=== PATIENT | female | born 1980 | race Caucasian/White ===

== ENCOUNTER → 2017-03-02 | Outpatient (CLI) | payer BC ==
[~2017-03-02] MED LIST: AGM875T PO; CEPH500C PO; NIFE20CA PO; PREN1TAB49
== END ==
LOC: LAB 19:12
PROVIDERS: ATTEND Nurse Practitioner Family
DX: N39.0 Urinary tract infection, site not specified (principal)
CPT/HCPCS: 87088

== ENCOUNTER 2022-08-01 00:11 | Inpatient (IN) | payer BC ==
[~2022-08-01] VITALS: Ht 162.6 cm; Wt 101.8 kg
[2022-08-01] MEDS ORDERED: DEXTROSE 50% 50 ML (IMS) SYR IV PRN (01:15)
[2022-08-01] MEDS ORDERED: NS IV 500 ML 500 ML IV PRN (01:45)
[2022-08-01] MEDS: D5 NS 1000 ML IV SOLUTION 1,000 ML IV SCH ×4 (02:06→23:04)
--- NOTE | 2022-08-01 02:32 | Tele-ICU Progress Note ---
Subjective Date Seen by a Provider: Aug 01, 2022 Time Seen by a Provider: 02:32 Subjective/Events-last exam (Tele-ICU Physician , consultation) Available chart/ vitals / labs / Images reviewed H&P is from ER notes Patient's information available about PMH, allergy reviewed in EMR. ROS as per chart and RN report Video assessment done using teleICU camera, rest of exam as per RN Discussed with RN. She is a 41-year-old female with past medical history of fall hypertension for which she takes hydrochlorothiazide and a moderate obesity with a previous history of cholecystectomy presents to [facility] emergency room with a complaint of diffuse abdominal pain going on for about 24 hours prior to this admission. She had a mild nausea at that time. No history of hematemesis or melena. In the emergency room she is evaluated with various blood test including CBC CMP and lipid profile which showed elevated lipase, markedly elevated cholesterol and triglycerides. A CT of the abdomen and pelvis done which the revealed pancreatitis changes. Subsequently she is transferred to this facility. I made a video visit and discussed with the patient. She is already given at that time Dilaudid and she is feeling somewhat better from a pain point of view but she has a nausea. Otherwise no acute distress at this time. I have discussed with the ER physician Christian Carrillo at the time of transfer of this patient. She is started on IV insulin drip to reduce her lipid burden. but her glucose is normal. Review of Systems General: Other (mild distress. otherwise stable.) ros per rn Sepsis Event Evaluation Height, Weight, BMI Height: '" Weight: lbs. oz. kg; 33.87 BMI Method:Stated Exam Exam Patient acknowledged, consented, and participated in this virtual visit which was conducted using real time audio/video Vital Signs Date Time Temp Pulse Resp B/P (MAP) Pulse Ox O2 Delivery O2 Flow Rate FiO2 08/01/22 01:15 97 18 147/91 (109) 93 Room Air 08/01/22 01:10 95 Room Air 08/01/22 01:01 36.2 114 24 173/102 (125) 93 Room Air 08/01/22 01:01 114 Height & Weight Height: '" Weight: lbs. oz. 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 Acute pancreatitis secondary to severe hypertriglyceridemia. 2. Dehydration with metabolic acidosis 3. History of hypertension. Recommendations 1. Agree with IV insulin drip and hydration with D5 half-normal saline. 2. Monitor electrolytes, triglycerides and anion gap closely. 3. DVT prophylaxis with Lovenox 4. GI prophylaxis with IV Protonix 5. Keep her n.p.o. for now. 6. Suggest surgical consultation. 7. CHECK HbA1c Critical Care: Critically Ill Patient Time spent with patient (mins): 20 SIMIN MEDRANO MD Aug 01, 2022 02:32
[2022-08-01] MEDS: HYDROmorphone 2 MG/ML VIAL (DILAUDID) IV PRN ×4 (02:48→20:08)
[2022-08-01] MEDS: ONDANSETRON 4 MG/2 ML (SDV) Z0FRAN IVP PRN ×2 (03:12→08:33)
[2022-08-01 05:25] LABS: BASOPHILS % (AUTO) 0 % (0-10); EOSINOPHILS % (AUTO) 0 % (0-10); HEMATOCRIT 38 % (35-52); HEMOGLOBIN 13.1 g/dL (11.5-16.0); LYMPHOCYTES % (AUTO) 8 % (12-44); MEAN CORPUSCULAR HEMOGLOBIN 33 pg (25-34); MEAN CORPUSCULAR HGB CONC 35 g/dL (32-36); MEAN CORPUSCULAR VOLUME 95 fL (80-99); MEAN PLATELET VOLUME 11.5 fL (9.0-12.2); MONOCYTES # (AUTO) 0.8 10^3/uL (0.0-1.0); MONOCYTES % (AUTO) 6 % (0-12); NEUTROPHILS # (AUTO) 11.2 10^3/uL (1.8-7.8); NEUTROPHILS % (AUTO) 85 % (42-75); PLATELET COUNT 191 10^3/uL (130-400); WHITE BLOOD COUNT 13.1 10^3/uL (4.3-11.0)
[2022-08-01 05:42] LABS: MAGNESIUM 1.6 MG/DL (1.6-2.4); PHOSPHORUS 1.3 MG/DL (2.3-4.7)
[2022-08-01 05:58] LABS: BAND NEUTROPHILS 4 %; LYMPHOCYTES % (MANUAL) 4 %; MONOCYTES % (MANUAL) 2 %; NEUTROPHILS % (MANUAL) 90 %
[2022-08-01 05:59] LABS: RBC MORPH NORMAL; TOXIC GRANULATION/VACUOLAZATIO 1+
[2022-08-01] MEDS: MAGNESIUM 1 GM/100 ML IVPB 100 ML IV SCH ×4 (06:00→10:32)
[2022-08-01] MEDS: KCL 20 MEQ TAB (K-DUR) PO SCH (06:00)
[2022-08-01] MEDS: POTASSIUM CL 10MEQ/50ML IVPB 50 ML IV SCH ×5 (06:00→09:13)
[2022-08-01] MEDS: GEMFIBROZIL 600 MG (LOPID) TAB PO SCH ×2 (06:06→15:38)
[2022-08-01 06:17] LABS: POTASSIUM 3.3 MMOL/L (3.6-5.0)
[2022-08-01 06:18] LABS: CALCIUM 7.8 MG/DL (8.5-10.1)
[2022-08-01 06:23] LABS: CREATININE SERUM 0.69 MG/DL (0.60-1.30)
[2022-08-01] MEDS: PANTOPRAZOLE 40 MG (PROTONIX) VIAL IV SCH (08:01)
[2022-08-01] MEDS: ENOXAPARIN 40 MG/0.4 ML (LOVENOX) SYR SC SCH (08:01)
[2022-08-01] MEDS: meTOproloL SUCCINATE 50 MG (TOPROL XL) TAB PO SCH (08:02)
[2022-08-01] MEDS: morphine INJ 4 MG/ML 1 ML (VIAL/SYRINGE) IVP PRN ×2 (08:03→14:44)
[2022-08-01] MEDS ORDERED: POTASSIUM PHOSPHATE INJ 30 MM in NS (IVPB) 250 ML IV NR (08:30)
--- NOTE | 2022-08-01 08:44 | History & Physical-Hospitalist ---
History of Present Illness HPI/Chief Complaint Patient is a 41-year-old female with a past medical history of hypertension who presented to the emergency department at [facility] due to abdominal pain. She states it started yesterday and woke her from her sleep. It continued throughout the day and she decided to seek evaluation in the ER last night. She was found to have an elevated lipase and her blood was very lipemic upon lab draw and so triglyceride was checked. Her triglyceride level was found to be 4500. CT of her abdomen confirmed pancreatitis. She was transferred here for further management. She is currently on an insulin drip and reports severe persistent pain. She had had Dilaudid earlier in the day but it had made her sick to her stomach. She denies any history of pancreatitis and reports when her triglycerides were checked in the past they wereon the high end of normal. Source: patient Exam Limitations: no limitations Date Seen 08/01/22 Time Seen by a Provider: 07:50 Attending Physician Destiny Jalloh DO PCP Admitting Physician: Dell Mendez MD Attending Physician: Dell Mendez MD Referring Physician Date of Admission Aug 01, 2022 at 00:52 Home Medications & Allergies Home Medications Reviewed patient Home Medication Reconciliation performed by pharmacy medication reconciliations electronics engineering technician and/or nursing. Patients Allergies have been reviewed. Allergies Allergies Coded Allergies No Known Drug Allergies (Unverified03/12/10) Past Oqtuoku-Kjdayt-Ykumlk Hx Patient Social History Tobacco Use?: No Smoking Status: Never a Smoker Smokeless Tobacco Frequency: Never a User Use of E-Cig and/or Vaping dev: No Substance use?: No Alcohol Use?: Yes Alcohol type: Beer Alcohol Frequency: Once in a while Pt feels they are or have been: No Immunizations Up To Date Tetanus Booster (TDap): More Than 5 Years Hepatitis A: No Hepatitis B: No Current Status status: No status: No Advance Directives: No Communicates: Verbally Primary Language: Dutch Preferred Spoken Language: Dutch Is interpretation needed?: No Review of Systems Constitutional: No chills, No fever EENTM: no symptoms reported Respiratory: no symptoms reported Cardiovascular: no symptoms reported Gastrointestinal: see HPI Genitourinary: no symptoms reported Musculoskeletal: no symptoms reported Skin: no symptoms reported Psychiatric/Neurological: No Symptoms Reported Physical Exam Physical Exam Vital Signs Vital Signs - First Documented 08/01/22 08/01/22 01:01 15:00 Temp 36.2 Pulse 114 Resp 24 B/P (MAP) 173/102 (125) Pulse Ox 93 O2 Delivery Room Air O2 Flow Rate 2.00 Capillary Refill : Height, Weight, BMI Height: '" Weight: lbs. oz. kg; 36.65 BMI Method:Stated General Appearance: No Apparent Distress, WD/WN HEENT: PERRL/EOMI, Moist Mucous Membranes Respiratory: Lungs Clear, No Accessory Muscle Use, No Respiratory Distress Cardiovascular: Regular Rate, Rhythm, No Murmur Gastrointestinal: Normal Bowel Sounds, Soft Extremity: Normal Capillary Refill, No Calf Tenderness, No Pedal Edema Neurologic/Psychiatric: Alert, Oriented x3, Normal Mood/Affect Skin: Normal Color, Warm/Dry Results Results/Procedures Labs Laboratory Tests 08/01/22 05:00 08/01/22 18:30 08/02/22 04:50 Patient resulted labs reviewed. Imaging: Reviewed Imaging Report (from [facility]) Assessment/Plan Admission Diagnosis Hypertriglyceridemia induced pancreatitis Admission Status: Inpatient Order (span 2 midnights) Reason for Inpatient Admission: see below Assessment and Plan Hypertriglyceridemia induced pancreatitis Trig 4500 at outside facility Insulin gtt NPO Pain regimen IVF Discussed with Dr Livingston who will see in consultation HTN BP well controlled, trend DVT ppx: Lovenox Diagnosis/Problems Diagnosis/Problems (1) Hypertension (2) Hypertriglyceridemia (3) Pancreatitis Qualifiers: Chronicity: acute Pancreatitis type: other Acute pancreatitis complication: no infection or necrosis Qualified Codes: K85.80 - Other acute pancreatitis without necrosis or infection NESHA COLORADO MD Aug 01, 2022 08:44
[2022-08-01] MEDS ORDERED: cefTRIAXone 1 GM PRE-MIX 50 ML IV SCH (10:30)
[2022-08-01] MEDS: PROMETHAZINE INJ 25 MG/ML (PHENERGAN) AMP IVP PRN ×3 (11:12→19:56)
[2022-08-01] MEDS: fentaNYL INJ 100 MCG/2 ML AMP IVP PRN (13:59)
[2022-08-01] MEDS ORDERED: CHOL200074 PO (14:47)
[2022-08-01] MEDS ORDERED: SULF-221 PO (14:47)
[2022-08-01] MEDS ORDERED: METO50TA15 PO (14:47)
[2022-08-01] MEDS ORDERED: MULT-1136 PO (14:47)
[2022-08-01] MEDS ORDERED: LORA10TA7 PO (14:47)
[2022-08-01] MEDS ORDERED: HYDR25TA4 PO (14:47)
[2022-08-01] MEDS ORDERED: ASCO-262 PO (14:47)
[2022-08-01] MEDS ORDERED: NORG1TAB15 PO (14:47)
[2022-08-01] MEDS ORDERED: ADAL40PE5 IJ (14:47)
--- NOTE | 2022-08-01 15:10 | Consultation - Surgery ---
[facility] 08/01/22 1510: History of Present Illness History of Present Illness Patient Consulted On(thong/time) 08/01/22 15:05 Date Seen by Provider: Aug 01, 2022 Time Seen by Provider: 15:05 History of Present Illness Consult requested by Dr. Leigh for pancreatitis. This is a 41 y F with PMH of HTN, elevated triglycerides and is s/p cholecystectomy. Pt reports lower abdominal and flank pain starting 07/30/22. She presented to [facility] ED night of 07/31/22 after she began vomiting, experiencing SOB and tachycardia. At [facility], CT revealed pancreatitis and she was transferred here by ambulance. Today she reports she has never had this pain before and describes it as going from abdomen through to her back. Reports only occasional alcohol use, denies smoking or recreational drug use. Allergies and Home Medications Allergies Coded Allergies: No Known Drug Allergies (Unverified , 03/12/10) Patient Home Medication List Home Medication List Reviewed: Yes Adalimumab (Humira Pen) 40 Mg/0.4 Ml Pen.ij.kit, 40 MG IJ MONTHLY, (Reported) Entered as Reported by: TEENA EARLY on 08/01/221446 Last Action: Reviewed Ascorbate Calcium (Vitamin C) 500 Mg Tablet, 500 MG PO DAILY, (Reported) Entered as Reported by: TEENA EARLY on 08/01/221446 Last Action: Reviewed Cholecalciferol (Vitamin D3) (Vitamin D3) 50 Mcg (2000 Unit) Capsule, 50 MCG PO DAILY, (Reported) Entered as Reported by: TEENA EARLY on 08/01/221446 Last Action: Reviewed Hydrochlorothiazide (Hydrochlorothiazide) 25 Mg Tablet, 25 MG PO DAILY, (Reported) Entered as Reported by: TEENA EARLY on 08/01/221446 Last Action: Reviewed Loratadine (Loratadine) 10 Mg Tablet, 10 MG PO DAILY, (Reported) Entered as Reported by: TEENA EARLY on 08/01/221446 Last Action: Reviewed Metoprolol Tartrate (Metoprolol Tartrate) 50 Mg Tablet, 50 MG PO BID, (Reported) Entered as Reported by: TEENA EARLY on 08/01/221446 Last Action: Reviewed Multivitamin (Multivitamin) 1 Each Tablet, 1 EACH PO DAILY, (Reported) Entered as Reported by: TEENA EARLY on 08/01/221446 Last Action: Reviewed Norgestimate-Ethinyl Estradiol (Tri-Sprintec Tablet) [id number] 28 Tablet, 1 EA PO HS, (Reported) Entered as Reported by: TEENA EARLY on 08/01/221446 Last Action: Reviewed Sulfamethoxazole/Trimethoprim (Bactrim Ds Tablet) 800 Mg-160 Mg Tablet, 1 EA PO BID, (Reported) Entered as Reported by: TEENA EARLY on 08/01/221446 Last Action: Reviewed Discontinued Medications Cephalexin Monohydrate (Cephalexin) 500 Mg Capsule, 1 EACH PO QID, (Reported) Discontinued Reason: No Longer Taking Entered as Reported by: MARIUSZ VARGAS on 07/04/10828 Last Action: Discontinued Nifedipine (Procardia) 20 Mg Capsule, 20 MG PO BID, (Reported) Discontinued Reason: No Longer Taking Entered as Reported by: MARIUSZ VARGAS on 07/04/10828 Last Action: Discontinued Vit27&Calcium/Iron/Fa ( Rx Tablet) 1 Each Tablet, 1 daily, (Reported) Discontinued Reason: No Longer Taking Entered as Reported by: YA VARGAS on 03/12/102126 Last Action: Discontinued Past Swndsfb-Ocfjnf-Deuoqp Hx Patient Social History Smoking Status: Never a Smoker Alcohol Use?: Yes Have you traveled recently?: No Surgeries Surgeries: Gallbladder Reproductive System Hx Reproductive Disorders: No Review of Systems-General Constitutional: No chills, No diaphoresis EENTM: No blurred vision, No double vision Respiratory: No cough, No dyspnea on exertion Cardiovascular: No chest pain, No palpitations Gastrointestinal: abdominal pain, nausea, vomiting Genitourinary: No decreased output, No discharge Musculoskeletal: No gout, No joint pain Skin: No change in color, No change in hair/nails Psychiatric/Neurological: Denies Anxiety, Denies Depressed, Denies Emotional Problems All Other Systems Reviewed Negative Unless Noted: Yes (Negative excepted noted.) Physical Exam-General Problems Physical Exam Vital Signs Vital Signs - First Documented 08/01/22 01:01 Temp 36.2 Pulse 114 Resp 24 B/P (MAP) 173/102 (125) Pulse Ox 93 O2 Delivery Room Air Capillary Refill : General Appearance: WD/WN, no apparent distress HEENT: PERRL/EOMI, normal ENT inspection Neck: non-tender, supple Respiratory: chest non-tender, no respiratory distress, no accessory muscle use Cardiovascular: no JVD, tachycardia Gastrointestinal: soft, tenderness (epigastric area) Rectal: deferred Back: normal inspection, CVA tenderness (R) (slight tenderness bilateral) Extremities: normal range of motion, non-tender Neurologic/Psychiatric: alert, normal mood/affect, oriented x 3 Skin: normal color, warm/dry Lymphatic: no adenopathy Data Review Labs Laboratory Tests 08/01/22 02:06: Glucometer 153H 08/01/22 03:02: Glucometer 147H 08/01/22 04:06: Glucometer 149H 08/01/22 04:58: Glucometer 130H 08/01/22 05:00: White Blood Count 13.1H, Red Blood Count 3.98, Hemoglobin 13.1, Hematocrit 38, M jesús Corpuscular Volume 95, Mean Corpuscular Hemoglobin 33, Mean Corpuscular Hemoglobin Concent 35, Red Cell Distribution Width 13.3, Platelet Count 191, Mean Platelet Volume 11.5, Immature Granulocyte % (Auto) 0, Neutrophils (%) (Auto) 85H, Lymphocytes (%) (Auto) 8L, Monocytes (%) (Auto) 6, Eosinophils (%) (Auto) 0, Basophils (%) (Auto) 0, Neutrophils # (Auto) 11.2H, Lymphocytes # (Auto) 1.0, Monocytes # (Auto) 0.8, Eosinophils # (Auto) 0.0, Basophils # (Auto) 0.0, Immature Granulocyte # (Auto) 0.1, Neutrophils % (Manual) 90, Lymphocytes % (Manual) 4, Monocytes % (Manual) 2, Band Neutrophils 4, Toxic Granulation 1+, Blood Morphology Comment NORMAL, Sodium Level 129L, Potassium Level 3.3L, Chloride Level 99, Carbon Dioxide Level 15L, Anion Gap 15H, Blood Urea Nitrogen 7, Creatinine 0.69, Estimat Glomerular Filtration Rate 112, BUN/Creatinine Ratio 10, Glucose Level 130H, Calcium Level 7.8L, Phosphorus Level 1.3L, Magnesium Level 1.6, Triglycerides Level 2330H 08/01/22 06:11: Glucometer 129H 08/01/22 07:11: Glucometer 155H 08/01/22 08:16: Glucometer 150H 08/01/22 09:07: Glucometer 102 08/01/22 10:05: Glucometer 122H 08/01/22 11:09: Glucometer 116H 08/01/22 11:50: Glucometer 94 08/01/22 13:04: Glucometer 112H 08/01/22 14:03: Glucometer 78 Assessment/Plan Assessment/Plan Assessment/Plan abdominal pain secondary to pancreatitis nausea/vomiting elevated triglycerides IV fluids, pain control zofran q4h continue to monitor TG with labs PATO PALMER DO 08/01/22 1622: History of Present Illness History of Present Illness History of Present Illness Consult requested by Dr. Leigh for pancreatitis. Patient is a 41-year-old female who states she been having abdominal pain since July 30. She states the pain continued to increase and she decided to go to the emergency department for further evaluation and [place]. She began having nausea and vomiting. She has not had anything like this before she states. Nothing seemed to make her pain better nothing was seem to make it worse that she knows of. It is continued to progress. Patient states the pain is in the epigastric area and also is also in her back. She denies any significant alcohol use. She had previous ch olecystectomy. She is found to have elevated cholesterol and triglycerides and a CT scan that was consistent with pancreatitis at the [facility]. Allergies and Home Medications Allergies Coded Allergies: No Known Drug Allergies (Unverified , 03/12/10) Patient Home Medication List Home Medication List Reviewed: Yes Adalimumab (Humira Pen) 40 Mg/0.4 Ml Pen.ij.kit, 40 MG IJ MONTHLY, (Reported) Entered as Reported by: TEENA EARLY on 08/01/221446 Last Action: Reviewed Ascorbate Calcium (Vitamin C) 500 Mg Tablet, 500 MG PO DAILY, (Reported) Entered as Reported by: TEENA EARLY on 08/01/221446 Last Action: Reviewed Cholecalciferol (Vitamin D3) (Vitamin D3) 50 Mcg (2000 Unit) Capsule, 50 MCG PO DAILY, (Reported) Entered as Reported by: TEENA EARLY on 08/01/221446 Last Action: Reviewed Hydrochlorothiazide (Hydrochlorothiazide) 25 Mg Tablet, 25 MG PO DAILY, (Reported) Entered as Reported by: TEENA EARLY on 08/01/221446 Last Action: Reviewed Loratadine (Loratadine) 10 Mg Tablet, 10 MG PO DAILY, (Reported) Entered as Reported by: TEENA EARLY on 08/01/221446 Last Action: Reviewed Metoprolol Tartrate (Metoprolol Tartrate) 50 Mg Tablet, 50 MG PO BID, (Reported) Entered as Reported by: TEENA EARLY on 08/01/221446 Last Action: Reviewed Multivitamin (Multivitamin) 1 Each Tablet, 1 EACH PO DAILY, (Reported) Entered as Reported by: TEENA EARLY on 08/01/221446 Last Action: Reviewed Norgestimate-Ethinyl Estradiol (Tri-Sprintec Tablet) 1VIPBW2 28 Tablet, 1 EA PO HS, (Reported) Entered as Reported by: TEENA EARLY on 08/01/221446 Last Action: Reviewed Sulfamethoxazole/Trimethoprim (Bactrim Ds Tablet) 800 Mg-160 Mg Tablet, 1 EA PO BID, (Reported) Entered as Reported by: TEENA EARLY on 08/01/221446 Last Action: Reviewed Discontinued Medications Cephalexin Monohydrate (Cephalexin) 500 Mg Capsule, 1 EACH PO QID, (Reported) Discontinued Reason: No Longer Taking Entered as Reported by: MARIUSZ VARGAS on 07/04/10828 Last Action: Discontinued Nifedipine (Procardia) 20 Mg Capsule, 20 MG PO BID, (Reported) Discontinued Reason: No Longer Taking Entered as Reported by: MARIUSZ VARGAS on 07/04/10828 Last Action: Discontinued Vit27&Calcium/Iron/Fa ( Rx Tablet) 1 Each Tablet, 1 daily, (Reported) Discontinued Reason: No Longer Taking Entered as Reported by: YA VARGAS on 03/12/102126 Last Action: Discontinued Past Uagiytx-Jrzact-Jinbam Hx Reviewed Nursing Assessment Reviewed/Agree w Nursing PMH: Yes Family Medical History Significant Family History: No Pertinent Family Hx Review of Systems-General Constitutional: No chills, No diaphoresis EENTM: No blurred vision, No double vision Respiratory: No cough, No dyspnea on exertion Cardiovascular: No chest pain, No palpitations Gastrointestinal: abdominal pain, nausea, vomiting Genitourinary: No decreased output, No discharge Musculoskeletal: back pain; No gout, No joint pain Skin: No change in color, No change in hair/nails Psychiatric/Neurological: Denies Anxiety, Denies Depressed, Denies Emotional Problems All Other Systems Reviewed Negative Unless Noted: Yes (Negative excepted noted.) Physical Exam-General Problems Physical Exam General Appearance: WD/WN, no apparent distress HEENT: PERRL/EOMI, normal ENT inspection Neck: non-tender, supple Respiratory: chest non-tender, no respiratory distress, no accessory muscle use Cardiovascular: no JVD, tachycardia Gastrointestinal: soft, tenderness (epigastric area) Rectal: deferred Back: normal inspection, CVA tenderness (R) (slight tenderness bilateral) Extremities: normal range of motion, non-tender Neurologic/Psychiatric: alert, normal mood/affect, oriented x 3 Skin: normal color, warm/dry Lymphatic: no adenopathy Assessment/Plan Assessment/Plan Assessment/Plan abdominal pain secondary to pancreatitis nausea/vomiting elevated triglycerides IV fluids, pain control zofran q4h NPO Do not need GB u/s already removed Supervisory-Addendum Brief Verification & Attestation Participated in pt care: history, MDM, physical Personally performed: exam, history, MDM, supervision of care Care discussed with: Medical Student Procedures: n/a Results interpretation: Verified all documentation Verification and Attestation of Medical Student E/M Service A medical student performed and documented this service in my presence. I reviewed and verified all information documented by the medical student and made modifications to such information, when appropriate. I personally performed the physical exam and medical decision making. Pato Palmer, Aug 01, 2022,16:24 ROSITA BOUDREAUX Aug 01, 2022 15:10 PATO PALMER DO Aug 01, 2022 16:22
[2022-08-01] MEDS: cefTRIAXone 1 GM PRE-MIX 50 ML IV SCH (15:33)
[2022-08-01 18:45] LABS: POTASSIUM 3.8 MMOL/L (3.6-5.0)
[2022-08-01 18:46] LABS: CALCIUM 7.4 MG/DL (8.5-10.1)
[2022-08-01 18:51] LABS: CREATININE SERUM 0.67 MG/DL (0.60-1.30)
[2022-08-01] MEDS ORDERED: DEXTROSE 10% IV SOLUTION 1,000 ML IV ONE (19:35)
[2022-08-01] MEDS: DEXTROSE 10% IV SOLUTION 1,000 ML IV SCH (19:56)
[2022-08-02] MEDS: PROMETHAZINE INJ 25 MG/ML (PHENERGAN) AMP IVP PRN ×4 (01:00→20:50)
[2022-08-02] MEDS: HYDROmorphone 2 MG/ML VIAL (DILAUDID) IV PRN ×4 (01:00→21:28)
[2022-08-02] MEDS: POTASSIUM CL 10MEQ/50ML IVPB 50 ML IV SCH (04:50)
[2022-08-02] MEDS: D5 NS 1000 ML IV SOLUTION 1,000 ML IV SCH ×3 (04:50→20:30)
[2022-08-02] MEDS: MAGNESIUM 1 GM/100 ML IVPB 100 ML IV SCH (04:50)
[2022-08-02] MEDS: KCL 20 MEQ TAB (K-DUR) PO SCH (04:50)
[2022-08-02 05:16] LABS: BASOPHILS # (AUTO) 0.1 10^3/uL (0.0-0.1); BASOPHILS % (AUTO) 0 % (0-10); EOSINOPHILS % (AUTO) 0 % (0-10); HEMATOCRIT 38 % (35-52); HEMOGLOBIN 12.1 g/dL (11.5-16.0); LYMPHOCYTES # (AUTO) 1.4 10^3/uL (1.0-4.0); LYMPHOCYTES % (AUTO) 8 % (12-44); MEAN CORPUSCULAR HEMOGLOBIN 32 pg (25-34); MEAN CORPUSCULAR HGB CONC 32 g/dL (32-36); MEAN CORPUSCULAR VOLUME 98 fL (80-99); MEAN PLATELET VOLUME 11.5 fL (9.0-12.2); MONOCYTES % (AUTO) 6 % (0-12); NEUTROPHILS # (AUTO) 13.7 10^3/uL (1.8-7.8); NEUTROPHILS % (AUTO) 84 % (42-75); PLATELET COUNT 186 10^3/uL (130-400); WHITE BLOOD COUNT 16.3 10^3/uL (4.3-11.0)
[2022-08-02 05:39] LABS: CALCIUM 7.6 MG/DL (8.5-10.1); CREATININE SERUM 0.68 MG/DL (0.60-1.30); MAGNESIUM 2.4 MG/DL (1.6-2.4); PHOSPHORUS 2.1 MG/DL (2.3-4.7)
--- NOTE | 2022-08-02 06:40 | Progress Note - Surgery ---
[facility] 08[facility]02/22 0640: Subjective Date Seen by a Provider: Aug 02, 2022 Time Seen by a Provider: 06:34 Subjective/Events-last exam Last night patient glucose was down to 57. Insulin drip was put on standby, 1/2 AMP of D50 was given and new orders changed fluid from D5 NS at 150mL/hr to D10 at 50 mL/hr and restart insulin drip at glucose over 120. Since, glucose has remained above 100. Insulin drip now stopped. Today she reports less pain though she woke up with STEVENS and sore throat. Her pain is at a 6/10 constantly localized in the epigastrium and is made worse by taking deep breaths. Her n/v improves with Phenergan and pain improves with Dilaudid. She reports she took her control pill last night and did not have any issues. Pt also reports her PCP told her to start taking Fish oil after a TG level in the 300s about 1 year ago, she only took this intermittently for a short time and is not currently taking it. Objective Exam Vital Signs Date Time Temp Pulse Resp B/P (MAP) Pulse Ox O2 Delivery O2 Flow Rate FiO2 08/02/22 06:20 117 25 94 Nasal Cannula 2.00 08/02/22 06:17 123 154/97 (116) Nasal Cannula 2.00 08/02/22 06:17 94 Nasal Cannula 2.00 08/02/22 05:00 102 21 135/86 (104) 94 Nasal Cannula 2.00 08/02/22 04:00 96 16 127/71 (92) 94 Nasal Cannula 2.00 08/02/22 04:00 98 Nasal Cannula 2.00 08/02/22 03:00 98 17 128/73 (91) 93 Nasal Cannula 2.00 08/02/22 02:00 98 17 116/73 (86) 93 Nasal Cannula 2.00 08/02/22 01:00 98 08/02/22 01:00 98 23 133/78 (92) 94 Nasal Cannula 2.00 08/02/22 00:00 104 30 129/91 (103) 96 Nasal Cannula 2.00 08/01/22 23:59 97 Nasal Cannula 2.00 08/01/22 23:00 94 15 133/79 (92) 95 Nasal Cannula 2.00 08/01/22 22:00 97 18 128/75 (85) 95 Nasal Cannula 2.00 08/01/22 21:00 96 17 124/73 (92) 95 Nasal Cannula 2.00 08/01/22 20:00 110 34 152/85 (112) 96 Nasal Cannula 2.00 08/01/22 20:00 97 Nasal Cannula 2.00 08/01/22 19:21 37.4 105 22 144/79 (100) 94 Nasal Cannula 2.00 08/01/22 19:00 101 08/01/22 18:00 100 23 130/86 (101) 95 Nasal Cannula 2.00 08/01/22 17:00 98 19 130/80 (97) 95 Nasal Cannula 2.00 08/01/22 16:00 110 21 143/84 (103) 95 Nasal Cannula 2.00 08/01/22 16:00 92 Nasal Cannula 2.00 08/01/22 15:00 116 28 141/86 (104) 92 Nasal Cannula 2.00 08/01/22 14:00 116 29 156/93 (114) 93 Room Air 08/01/22 13:00 116 20 154/96 (115) 93 Room Air 08/01/22 12:49 103 08/01/22 12:00 103 18 147/85 (105) 92 Room Air 08/01/22 12:00 36.0 08/01/22 11:00 96 Room Air 08/01/22 11:00 100 17 143/91 (108) 92 Room Air 08/01/22 10:00 107 20 161/99 (119) 92 Room Air 08/01/22 09:00 108 24 148/84 (105) 92 Room Air 08/01/22 08:00 122 30 93 Room Air 08/01/22 08:00 96 Room Air 08/01/22 07:58 36.8 08/01/22 07:20 107 08/01/22 07:00 100 15 136/84 (101) 93 Room Air I & O 08/02/22 07:00 Intake Total 910 ml Output Total 1425 ml Balance -515 ml Capillary Refill : Less Than 3 Seconds General Appearance: No Apparent Distress, WD/WN HEENT: PERRL/EOMI, Moist Mucous Membranes Neck: Normal Inspection, Supple Respiratory: Lungs Clear, No Accessory Muscle Use, No Respiratory Distress Cardiovascular: Regular Rate, Rhythm, No Edema, No Murmur Gastrointestinal: soft, tenderness (epigastric area) Extremity: Normal Capillary Refill, No Calf Tenderness, No Pedal Edema Neurologic/Psychiatric: Alert, Oriented x3, Normal Mood/Affect Skin: Normal Color, Warm/Dry Lymphatic: No Adenopathy Results Lab Laboratory Tests 08/01/22 07:11: Glucometer 155H 08/01/22 08:16: Glucometer 150H 08/01/22 09:07: Glucometer 102 08/01/22 10:05: Glucometer 122H 08/01/22 11:09: Glucometer 116H 08/01/22 11:50: Glucometer 94 08/01/22 13:04: Glucometer 112H 08/01/22 14:03: Glucometer 78 08/01/22 15:21: Glucometer 76 08/01/22 16:14: Glucometer 92 08/01/22 17:08: Glucometer 85 08/01/22 18:13: Glucometer 70 08/01/22 18:30: Sodium Level 136, Potassium Level 3.8, Chloride Level 105, Carbon Dioxide Level 22, Anion Gap 9, Blood Urea Nitrogen 6L, Creatinine 0.67, Estimat Glomerular Filtration Rate 113, BUN/Creatinine Ratio 9, Glucose Level 64L, Calcium Level 7.4L, Triglycerides Level 475#H 08/01/22 19:11: Glucometer 57*L 08/01/22 20:06: Glucometer 83 08/01/22 21:29: Glucometer 110 08/01/22 22:44: Glucometer 108 08/01/22 23:57: Glucometer 121H 08/02/22 00:50: Glucometer 114H 08/02/22 01:51: Glucometer 113H 08/02/22 02:55: Glucometer 103 08/02/22 03:44: Glucometer 108 08/02/22 04:48: Glucometer 132H 08/02/22 04:50: White Blood Count 16.3H, Red Blood Count 3.84, Hemoglobin 12.1, Hematocrit 38, Mean Corpuscular Volume 98, Mean Corpuscular Hemoglobin 32, Mean Corpuscular Hemoglobin Concent 32, Red Cell Distribution Width 14.3, Platelet Count 186, Mean Platelet Volume 11.5, Immature Granulocyte % (Auto) 1, Neutrophils (%) (Auto) 84H, Lymphocytes (%) (Auto) 8L, Monocytes (%) (Auto) 6, Eosinophils (%) (Auto) 0, Basophils (%) (Auto) 0, Neutrophils # (Auto) 13.7H, Lymphocytes # (Auto) 1.4, Monocytes # (Auto) 1.0, Eosinophils # (Auto) 0.0, Basophils # (Auto) 0.1, Immature Granulocyte # (Auto) 0.1, Sodium Level 135, Potassium Level 4.0, Chloride Level 106, Carbon Dioxide Level 20L, Anion Gap 9, Blood Urea Nitrogen 7, Creatinine 0.68, Estimat Glomerular Filtration Rate 113, BUN/Creatinine Ratio 10, Glucose Level 114H, Calcium Level 7.6L, Phosphorus Level 2.1L, Magnesium Level 2.4, Triglycerides Level 433#H Assessment/Plan Assessment/Plan Assessment/Plan abdominal pain secondary to pancreatitis nausea/vomiting elevated triglycerides- improved IV fluids pain control zofran q4h and phenergan NPO Do not need GB u/s already removed PATO LIVINGSTON DO 08/02/221912: Subjective Subjective/Events-last exam patient is stating pain in the epigastric area and back has improved. Still present but slightly more tolerable. Triglycerides improving. White count elevated. Currently n.p.o. Nausea and vomiting improved with medication. No new complaints. Objective Exam General Appearance: No Apparent Distress, WD/WN HEENT: PERRL/EOMI, Normal ENT Inspection Neck: Normal Inspection, Supple Respiratory: Chest Non Tender, No Accessory Muscle Use, No Respiratory Distress Cardiovascular: Regular Rate, Rhythm, No JVD Gastrointestinal: soft, tenderness (epigastric) Extremity: Normal Capillary Refill, Non Tender Neurologic/Psychiatric: Alert, Oriented x3 Skin: Normal Color, Warm/Dry Lymphatic: No Adenopathy Assessment/Plan Assessment/Plan Assessment/Plan abdominal pain secondary to pancreatitis nausea/vomiting elevated triglycerides- improved IV fluids pain control zofran q4h and phenergan NPO if pain continues to improve can start clears Do not need GB u/s already removed Supervisory-Addendum Brief Verification & Attestation Participated in pt care: history, MDM, physical Personally performed: exam, history, MDM, supervision of care Care discussed with: Medical Student Procedures: n/a Results interpretation: Verified all documentation Verification and Attestation of Medical Student E/M Service A medical student performed and documented this service in my presence. I revi ewed and verified all information documented by the medical student and made modifications to such information, when appropriate. I personally performed the physical exam and medical decision making. Pato Livingston, Aug 02, 2022,19:15 ROSITA BOUDREAUX Aug 02, 2022 06:40 PATO LIVINGSTON DO Aug 02, 2022 19:13
[2022-08-02] MEDS: GEMFIBROZIL 600 MG (LOPID) TAB PO SCH ×2 (07:59→14:55)
[2022-08-02] MEDS: PANTOPRAZOLE 40 MG (PROTONIX) VIAL IV SCH (07:59)
[2022-08-02] MEDS: ENOXAPARIN 40 MG/0.4 ML (LOVENOX) SYR SC SCH (07:59)
[2022-08-02] MEDS: meTOproloL SUCCINATE 50 MG (TOPROL XL) TAB PO SCH (07:59)
--- NOTE | 2022-08-02 08:40 | Progress Note - Hospitalist ---
Subjective HPI/CC On Admission Date Seen by Provider: Aug 02, 2022 Patient is a 41-year-old female with a past medical history of hypertension who presented to the emergency department at [place] due to abdominal pain. She states it started yesterday and woke her from her sleep. It continued throughout the day and she decided to seek evaluation in the ER last night. She was found to have an elevated lipase and her blood was very lipemic upon lab draw and so triglyceride was checked. Her triglyceride level was found to be 4500. CT of her abdomen confirmed pancreatitis. She was transferred here for further management. She is currently on an insulin drip and reports severe persistent pain. She had had Dilaudid earlier in the day but it had made her sick to her stomach. She denies any history of pancreatitis and reports when her triglycerides were checked in the past they wereon the high end of normal. Subjective/Events-last exam Reports pain improving but still present. Discussed improved lab results and plan to DC Insulin. Objective Exam Vital Signs Vital Signs Date Time Temp Pulse Resp B/P (MAP) Pulse Ox O2 Delivery O2 Flow Rate FiO2 08/02/22 08:00 98 19 154/84 (107) 96 Nasal Cannula 2.00 08/01/22 19:21 37.4 Capillary Refill : Less Than 3 Seconds General Appearance: No Apparent Distress, WD/WN Respiratory: Lungs Clear, No Respiratory Distress Cardiovascular: Regular Rate, Rhythm, No Murmur Gastrointestinal: Normal Bowel Sounds, Non Tender, Soft Neurologic/Psychiatric: Alert, Oriented x3 Results/Procedures Lab Laboratory Tests 08/01/22 18:30 08/02/22 04:50 Patient resulted labs reviewed. Imaging: Reviewed Imaging Report (from [facility]) Assessment/Plan Assessment and Plan Assess & Plan/Chief Complaint Hypertriglyceridemia induced pancreatitis Trig 4500 at outside facility, down to 433 this AM Insulin gtt to DC NPO but will allow for some sips Pain regimen IVF Surgery consulted, appreciate recs Will refer to [facility] HTN BP well controlled, trend DVT ppx: Lovenox Critical Care Critically Ill Patient Diagnosis/Problems Diagnosis/Problems (1) Hypertension (2) Hypertriglyceridemia (3) Pancreatitis Qualifiers: Chronicity: acute Pancreatitis type: other Acute pancreatitis complication: no infection or necrosis Qualified Codes: K85.80 - Other acute pancreatitis without necrosis or infection NESHA COLORADO MD Aug 02, 2022 08:40
[2022-08-02] MEDS: NS IV 1000 ML 1,000 ML IV SCH ×2 (10:07→19:09)
--- NOTE | 2022-08-02 11:37 | Tele-ICU Progress Note ---
Subjective Date Seen by a Provider: Aug 02, 2022 Time Seen by a Provider: 11:34 Subjective/Events-last exam (Tele-ICU Physician , Progress Note ) Service provided via interactive audio and video telecommunications E-CARE system to a patient admitted to ICU bed in [facility]. Available chart/ vitals / labs / Images reviewed Video assessment done using teleICU camera, rest of exam as per RN Discussed with RN Events overnight : Afebrile hemodynamically stable Respiratory - I/O = neg Drips: Pressors- no Consultants: sx Hospital course: (08/01) 41 Y/O Female from Outside [facility]) with Pancreatitis secondary to Elevated Triglycerides. Labs are pending. (08/02) Hypoglycemia overnight. Insulin gtt held & then resumed at lower rate. D10 infusing. Patient is seen today due to persistent pancreatitis, hypoxioa A/P Hypertriglyceridemia induced pancreatitis -Trig 4500 at outside facility, down to 433 this AM -Insulin gtt to DC -Pain regimen -start po - cont VF -Surgery consulted Hypoxia - mild - IS - migh need top decrease IVF if worsening - pain control replace lytes Lines : periph , (Central Line Necessity Reviewed) Dominique: void OG: Nutrition: Analgesia: Anxiety/ delirium VTE Prophylaxis: halie 40 Stress Ulcer Prophylaxis:ppi Plans in collaboration with bedside consultants and IM MDs. Discussed with RN to reach out if any questions or concerns A total of 20 minutes of critical care time was devoted to this patient today, required to treat and/or prevent further deterioration of critical care condition ( as above ) . I am remotely monitoring this patient from another state. I am unable to do the bedside exam, and history/physical and pertinent information is taken from other notes in the computer and bedside staff. Sepsis Event Evaluation Height, Weight, BMI Height: '" Weight: lbs. oz. kg; 36.65 BMI Method:Stated Exam Exam Patient acknowledged, consented, and participated in this virtual visit which was conducted using real time audio/video Vital Signs Date Time Temp Pulse Resp B/P (MAP) Pulse Ox O2 Delivery O2 Flow Rate FiO2 08/02/22 10:00 89 24 142/87 (105) 97 Nasal Cannula 2.00 08/02/22 09:00 101 26 142/77 (98) 95 Nasal Cannula 2.00 08/02/22 08:00 98 Nasal Cannula 2.00 08/02/22 08:00 98 19 154/84 (107) 96 Nasal Cannula 2.00 08/02/22 07:00 102 08/02/22 07:00 102 17 144/75 (98) 95 Nasal Cannula 2.00 08/02/22 06:20 117 25 94 Nasal Cannula 2.00 08/02/22 06:17 123 154/97 (116) Nasal Cannula 2.00 08/02/22 06:17 94 Nasal Cannula 2.00 08/02/22 05:00 102 21 135/86 (104) 94 Nasal Cannula 2.00 08/02/22 04:00 96 16 127/71 (92) 94 Nasal Cannula 2.00 08/02/22 04:00 98 Nasal Cannula 2.00 08/02/22 03:00 98 17 128/73 (91) 93 Nasal Cannula 2.00 08/02/22 02:00 98 17 116/73 (86) 93 Nasal Cannula 2.00 08/02/22 01:00 98 08/02/22 01:00 98 23 133/78 (92) 94 Nasal Cannula 2.00 08/02/22 00:00 104 30 129/91 (103) 96 Nasal Cannula 2.00 08/01/22 23:59 97 Nasal Cannula 2.00 08/01/22 23:00 94 15 133/79 (92) 95 Nasal Cannula 2.00 08/01/22 22:00 97 18 128/75 (85) 95 Nasal Cannula 2.00 08/01/22 21:00 96 17 124/73 (92) 95 Nasal Cannula 2.00 08/01/22 20:00 110 34 152/85 (112) 96 Nasal Cannula 2.00 08/01/22 20:00 97 Nasal Cannula 2.00 08/01/22 19:21 37.4 105 22 144/79 (100) 94 Nasal Cannula 2.00 08/01/22 19:00 101 08/01/22 18:00 100 23 130/86 (101) 95 Nasal Cannula 2.00 08/01/22 17:00 98 19 130/80 (97) 95 Nasal Cannula 2.00 08/01/22 16:00 110 21 143/84 (103) 95 Nasal Cannula 2.00 08/01/22 16:00 92 Nasal Cannula 2.00 08/01/22 15:00 116 28 141/86 (104) 92 Nasal Cannula 2.00 08/01/22 14:00 116 29 156/93 (114) 93 Room Air 08/01/22 13:00 116 20 154/96 (115) 93 Room Air 08/01/22 12:49 103 08/01/22 12:00 103 18 147/85 (105) 92 Room Air 08/01/22 12:00 36.0 I & O 08/02/22 06:58 Intake Total 910 ml Output Total 1425 ml Balance -515 ml Height & Weight Height: '" Weight: lbs. oz. kg; 36.65 BMI Method:Stated General Appearance: No Apparent Distress, WD/WN HEENT: PERRL/EOMI, Moist Mucous Membranes Neck: Normal Inspection, Supple Respiratory: Lungs Clear, No Accessory Muscle Use, No Respiratory Distress Cardiovascular: Regular Rate, Rhythm, No Edema, No Murmur Capillary Refill: Less Than 3 Seconds Gastrointestinal: soft, tenderness (epigastric area) Extremity: Normal Capillary Refill, No Calf Tenderness, No Pedal Edema Neurologic/Psychiatric: Alert, Oriented x3, Normal Mood/Affect Skin: Normal Color, Warm/Dry Lymphatic: No Adenopathy Results Lab Laboratory Tests 08/01/22 05:00 08/01/22 18:30 08/02/22 04:50 Assessment/Plan Assessment/Plan 1 ELIJAH JAMA MD Aug 02, 2022 11:37
[2022-08-02] MEDS: ACETAMINOPHEN 500 MG TAB (TYLENOL) PO PRN ×2 (12:44→16:57)
[2022-08-02] MEDS: DEXTROSE 10% IV SOLUTION 1,000 ML IV SCH (14:55)
[2022-08-02] MEDS: cefTRIAXone 1 GM PRE-MIX 50 ML IV SCH (14:56)
[2022-08-02] MEDS: ONDANSETRON 4 MG/2 ML (SDV) Z0FRAN IVP PRN (16:56)
[2022-08-02] MEDS: morphine INJ 4 MG/ML 1 ML (VIAL/SYRINGE) IVP PRN (17:37)
[2022-08-02 18:31] LABS: CALCIUM 8.3 MG/DL (8.5-10.1); CREATININE SERUM 0.67 MG/DL (0.60-1.30)
[2022-08-02] MEDS: fentaNYL INJ 100 MCG/2 ML AMP IVP PRN (20:13)
[2022-08-03] MEDS: NS IV 1000 ML 1,000 ML IV SCH ×2 (00:53→11:04)
[2022-08-03] MEDS: HYDROmorphone 2 MG/ML VIAL (DILAUDID) IV PRN ×4 (01:57→21:46)
[2022-08-03] MEDS: PROMETHAZINE INJ 25 MG/ML (PHENERGAN) AMP IVP PRN ×5 (01:57→21:46)
[2022-08-03 05:20] LABS: BASOPHILS # (AUTO) 0.1 10^3/uL (0.0-0.1); BASOPHILS % (AUTO) 0 % (0-10); HEMOGLOBIN 11.4 g/dL (11.5-16.0); PLATELET COUNT 152 10^3/uL (130-400)
[2022-08-03 05:22] LABS: EOSINOPHILS # (AUTO) 0.1 10^3/uL (0.0-0.3); EOSINOPHILS % (AUTO) 1 % (0-10); HEMATOCRIT 36 % (35-52); LYMPHOCYTES # (AUTO) 1.3 10^3/uL (1.0-4.0); LYMPHOCYTES % (AUTO) 9 % (12-44); MEAN CORPUSCULAR HEMOGLOBIN 32 pg (25-34); MEAN CORPUSCULAR HGB CONC 32 g/dL (32-36); MEAN CORPUSCULAR VOLUME 102 fL (80-99); MEAN PLATELET VOLUME 11.5 fL (9.0-12.2); MONOCYTES # (AUTO) 0.8 10^3/uL (0.0-1.0); MONOCYTES % (AUTO) 6 % (0-12); NEUTROPHILS # (AUTO) 11.9 10^3/uL (1.8-7.8); NEUTROPHILS % (AUTO) 83 % (42-75); WHITE BLOOD COUNT 14.4 10^3/uL (4.3-11.0)
[2022-08-03 05:45] LABS: CALCIUM 8.2 MG/DL (8.5-10.1); CREATININE SERUM 0.59 MG/DL (0.60-1.30); MAGNESIUM 2.6 MG/DL (1.6-2.4); POTASSIUM 4.6 MMOL/L (3.6-5.0)
[2022-08-03] MEDS: D5 NS 1000 ML IV SOLUTION 1,000 ML IV SCH ×2 (06:08→14:27)
[2022-08-03] MEDS: POTASSIUM CL 10MEQ/50ML IVPB 50 ML IV SCH (06:08)
[2022-08-03] MEDS: MAGNESIUM 1 GM/100 ML IVPB 100 ML IV SCH (06:09)
[2022-08-03] MEDS: KCL 20 MEQ TAB (K-DUR) PO SCH (06:09)
--- NOTE | 2022-08-03 06:32 | Progress Note - Surgery ---
[facility] 08/03/22 0632: Subjective Date Seen by a Provider: Aug 03, 2022 Time Seen by a Provider: 06:27 Subjective/Events-last exam Pt is feeling better today, rates pain at 5/10 constant in epigastrium and is radiating to her back less. She is passing gas but denies BM. She is still hav ing frequent STEVENS that improve with pain medicine. Endorses nausea, denies vomiting. Objective Exam Vital Signs Date Time Temp Pulse Resp B/P (MAP) Pulse Ox O2 Delivery O2 Flow Rate FiO2 08/03/22 06:00 93 18 132/86 (101) 94 Nasal Cannula 2.00 08/03/22 05:00 97 28 95 Nasal Cannula 2.00 08/03/22 04:00 88 15 138/86 (103) 95 Nasal Cannula 2.00 08/03/22 04:00 96 Room Air 08/03/22 03:00 90 15 131/69 (89) 93 Nasal Cannula 2.00 08/03/22 02:00 100 14 144/85 (104) 91 Nasal Cannula 2.00 08/03/22 01:00 109 08/03/22 01:00 92 21 148/89 (108) 97 Nasal Cannula 2.00 08/03/22 00:00 87 17 130/82 (98) 97 Nasal Cannula 2.00 08/02/22 23:59 96 Room Air 08/02/22 23:00 90 30 121/76 (91) 93 Nasal Cannula 2.00 08/02/22 22:00 92 16 131/82 (98) 90 Nasal Cannula 2.00 08/02/22 21:00 101 21 142/86 (104) 92 Nasal Cannula 2.00 08/02/22 20:00 100 28 168/94 (118) Nasal Cannula 2.00 08/02/22 20:00 96 Room Air 08/02/22 19:12 95 Room Air 08/02/22 19:00 99 08/02/22 19:00 88 29 161/87 (111) 92 Nasal Cannula 2.00 08/02/22 18:00 102 44 151/89 (109) 94 Nasal Cannula 2.00 08/02/22 17:00 101 27 150/86 (107) 93 Nasal Cannula 2.00 08/02/22 16:15 96 Room Air 08/02/22 16:00 101 21 149/86 (107) 93 Nasal Cannula 2.00 08/02/22 15:00 116 20 162/97 (118) 91 Nasal Cannula 2.00 08/02/22 14:00 101 18 146/99 (115) 97 Nasal Cannula 2.00 08/02/22 13:49 95 08/02/22 13:00 96 20 142/81 (101) 96 Nasal Cannula 2.00 08/02/22 12:00 96 16 143/90 (107) 97 Nasal Cannula 2.00 08/02/22 12:00 98 Nasal Cannula 2.00 08/02/22 11:00 98 17 138/86 (103) 95 Nasal Cannula 2.00 08/02/22 10:00 89 24 142/87 (105) 97 Nasal Cannula 2.00 08/02/22 09:00 101 26 142/77 (98) 95 Nasal Cannula 2.00 08/02/22 08:00 98 Nasal Cannula 2.00 08/02/22 08:00 98 19 154/84 (107) 96 Nasal Cannula 2.00 08/02/22 07:00 102 08/02/22 07:00 102 17 144/75 (98) 95 Nasal Cannula 2.00 I & O 08/03/22 07:00 Intake Total 125 ml Output Total 2450 ml Balance -2325 ml Capillary Refill : Less Than 3 Seconds General Appearance: No Apparent Distress, WD/WN HEENT: PERRL/EOMI, Normal ENT Inspection Neck: Normal Inspection, Supple Respiratory: Chest Non Tender, No Accessory Muscle Use, No Respiratory Distress Cardiovascular: Regular Rate, Rhythm, No JVD Gastrointestinal: soft, tenderness (epigastric, improved from yesterday) Extremity: Normal Capillary Refill, Non Tender Neurologic/Psychiatric: Alert, Oriented x3 Skin: Normal Color, Warm/Dry Lymphatic: No Adenopathy Results Lab Laboratory Tests 08/02/22 06:49: Glucometer 125H 08/02/22 07:58: Glucometer 124H 08/02/22 12:19: Glucometer 125H 08/02/22 17:59: Sodium Level 138, Potassium Level 4.0, Chloride Level 106, Carbon Dioxide Level 25, Anion Gap 7, Blood Urea Nitrogen 6L, Creatinine 0.67, Estimat Glomerular Filtration Rate 113, BUN/Creatinine Ratio 9, Glucose Level 102, Calcium Level 8.3L, Triglycerides Level 530#H 08/03/22 00:20: Glucometer 94 08/03/22 05:06: White Blood Count 14.4H, Red Blood Count 3.54L, Hemoglobin 11.4L, Hematocrit 36, Mean Corpuscular Volume 102H, Mean Corpuscular Hemoglobin 32, Mean Corpuscular Hemoglobin Concent 32, Red Cell Distribution Width 14.3, Platelet Count 152, Mean Platelet Volume 11.5, Immature Granulocyte % (Auto) 1, Neutrophils (%) (Auto) 83H, Lymphocytes (%) (Auto) 9L, Monocytes (%) (Auto) 6, Eosinophils (%) (Auto) 1, Basophils (%) (Auto) 0, Neutrophils # (Auto) 11.9H, Lymphocytes # (Auto) 1.3, Monocytes # (Auto) 0.8, Eosinophils # (Auto) 0.1, Basophils # (Auto) 0.1, Immature Granulocyte # (Auto) 0.2H, Percent Immature Platelet Fraction 9.5H , Sodium Level 137, Potassium Level 4.6, Chloride Level 108H, Carbon Dioxide Level 18L, Anion Gap 11, Blood Urea Nitrogen 8, Creatinine 0.59L, Estimat Glomerular Filtration Rate 117, BUN/Creatinine Ratio 14, Glucose Level 96, Calcium Level 8.2L, Magnesium Level 2.6H, Triglycerides Level 387H Assessment/Plan Assessment/Plan Assessment/Plan abdominal pain secondary to pancreatitis- improved nausea/vomiting elevated triglycerides- improved IV fluids pain control zofran q4h and phenergan clear liquid diet without issue Do not need GB u/s already removed PATO LIVINGSTON DO 08/04/22 0037: Subjective Subjective/Events-last exam Patient states that she is doing a bit better today. She is having a bit more pain this evening than she was earlier today. Pain in the epigastric area. She is tolerating clears. Having little bit of nausea but improved with Zofran. Not having any emesis. Feels like she is slowly getting better. Denies any fever sweats chills shortness of breath or chest pain. Objective Exam General Appearance: No Apparent Distress, WD/WN HEENT: PERRL/EOMI, Normal ENT Inspection Neck: Normal Inspection, Supple Respiratory: Chest Non Tender, No Accessory Muscle Use, No Respiratory Distress Cardiovascular: Regular Rate, Rhythm, No JVD Gastrointestinal: soft, tenderness (epigastric, improved from yesterday) Extremity: Normal Capillary Refill, Non Tender Neurologic/Psychiatric: Alert, Oriented x3 Skin: Normal Color, Warm/Dry Lymphatic: No Adenopathy Assessment/Plan Assessment/Plan Assessment/Plan abdominal pain secondary to pancreatitis- improved nausea/vomiting elevated triglycerides- improved IV fluids pain control zofran q4h and phenergan clear liquid diet without issue, still with nausea and some pain, would not advance diet till further improved Do not need GB u/s already removed Supervisory-Addendum Brief Verification & Attestation Participated in pt care: history, MDM, physical Personally performed: exam, history, MDM, supervision of care Care discussed with: Medical Student Procedures: n/a Results interpretation: Verified all documentation Verification and Attestation of Medical Student E/M Service A medical student performed and documented this service in my presence. I reviewed and verified all information documented by the medical student and made modifications to such information, when appropriate. I personally performed the physical exam and medical decision making. Pato Livingston, Aug 03, 2022,23:37 ROSITA BOUDREAUX Aug 03, 2022 06:32 PATO LIVINGSTON DO Aug 04, 2022 00:37
[2022-08-03] MEDS: PANTOPRAZOLE 40 MG (PROTONIX) VIAL IV SCH (07:37)
[2022-08-03] MEDS: meTOproloL SUCCINATE 50 MG (TOPROL XL) TAB PO SCH (07:37)
[2022-08-03] MEDS: ENOXAPARIN 40 MG/0.4 ML (LOVENOX) SYR SC SCH (07:38)
[2022-08-03] MEDS: GEMFIBROZIL 600 MG (LOPID) TAB PO SCH ×2 (07:38→16:27)
[2022-08-03] MEDS: ACETAMINOPHEN 500 MG TAB (TYLENOL) PO PRN (07:53)
--- NOTE | 2022-08-03 10:13 | Progress Note - Hospitalist ---
Subjective HPI/CC On Admission Date Seen by Provider: Aug 03, 2022 Patient is a 41-year-old female with a past medical history of hypertension who presented to the emergency department at [place] due to abdominal pain. She states it started yesterday and woke her from her sleep. It continued throughout the day and she decided to seek evaluation in the ER last night. She was found to have an elevated lipase and her blood was very lipemic upon lab draw and so triglyceride was checked. Her triglyceride level was found to be 4500. CT of her abdomen confirmed pancreatitis. She was transferred here for further management. She is currently on an insulin drip and reports severe persistent pain. She had had Dilaudid earlier in the day but it had made her sick to her stomach. She denies any history of pancreatitis and reports when her triglycerides were checked in the past they wereon the high end of normal. Subjective/Events-last exam Pt reports doing better but still dealing with nausea. Still off insulin gtt and doing well. Clears ordered and she doing ok. Thinks nausea is due to not eating. Objective Exam Vital Signs Vital Signs Date Time Temp Pulse Resp B/P (MAP) Pulse Ox O2 Delivery O2 Flow Rate FiO2 08/03/22 10:00 36.9 87 22 149/91 (110) 94 Room Air 08/03/22 08:00 2.00 Capillary Refill : Less Than 3 Seconds General Appearance: No Apparent Distress, WD/WN Respiratory: Lungs Clear, No Respiratory Distress Cardiovascular: Regular Rate, Rhythm, No Murmur Gastrointestinal: Normal Bowel Sounds, Soft Neurologic/Psychiatric: Alert, Oriented x3 Results/Procedures Lab Laboratory Tests 08/02/22 17:59 08/03/22 05:06 Patient resulted labs reviewed. Imaging: Reviewed Imaging Report (from [place]) Assessment/Plan Assessment and Plan Assess & Plan/Chief Complaint Hypertriglyceridemia induced pancreatitis Trig 4500 at outside facility, down to 387 without insulin gtt CLD Pain regimen IVF Surgery consulted, appreciate recs Will refer to [facility] Transfer to [facility] HTN BP well controlled, trend DVT ppx: Lovenox Critical Care Critically Ill Patient Diagnosis/Problems Diagnosis/Problems (1) Hypertension (2) Hypertriglyceridemia (3) Pancreatitis Qualifiers: Chronicity: acute Pancreatitis type: other Acute pancreatitis complication: no infection or necrosis Qualified Codes: K85.80 - Other acute pancreatitis without necrosis or infection NESHA COLORADO MD Aug 03, 2022 10:13
[2022-08-03] MEDS: ONDANSETRON 4 MG/2 ML (SDV) Z0FRAN IVP PRN (14:27)
[2022-08-03] MEDS: morphine INJ 4 MG/ML 1 ML (VIAL/SYRINGE) IVP PRN (14:27)
--- NOTE | 2022-08-03 15:08 | Tele-ICU Progress Note ---
Subjective Date Seen by a Provider: Aug 03, 2022 Time Seen by a Provider: 11:02 Subjective/Events-last exam (Tele-ICU Physician , Progress Note ) Service provided via interactive audio and video telecommunications E-CARE system to a patient admitted to ICU bed in [facility]. Available chart/ vitals / labs / Images reviewed Video assessment done using teleICU camera, rest of exam as per RN Discussed with RN Events overnight : Afebrile hemodynamically stable Respiratory - 2l I/O = neg 2l Drips: Pressors- no Consultants: sx Hospital course: (08/01) 41 Y/O Female from Outside [facility]) with Pancreatitis secondary to Elevated Triglycerides. Labs are pending. (08/02) Hypoglycemia overnight. Insulin gtt held & then resumed at lower rate. D10 infusing. 08/02 - insulin gtt stopped Patient is seen today due to persistent pancreatitis, hypoxioa A/P Hypertriglyceridemia induced pancreatitis -Trig 4500 at outside facility, down to 433 this AM -Insulin gtt stopped 08/02 -Pain regimen in place - improving -start po - cont VF -Surgery consulted Hypoxia - mild with opioids hypoventilation - IS - might need top decrease IVF if worsening - pain control to wean off opioids replace lytes Lines : periph , (Central Line Necessity Reviewed) Dominique: void OG: Nutrition: Analgesia: Anxiety/ delirium VTE Prophylaxis: halie 40 Stress Ulcer Prophylaxis:ppi Plans in collaboration with bedside consultants and IM MDs. Discussed with RN to reach out if any questions or concerns A total of 20 minutes of critical care time was devoted to this patient today, required to treat and/or prevent further deterioration of critical care condition ( as above ) . I am remotely monitoring this patient from another state. I am unable to do the bedside exam, and history/physical and pertinent information is taken from other notes in the computer and bedside staff. Sepsis Event Evaluation Height, Weight, BMI Height: '" Weight: lbs. oz. kg; 36.99 BMI Method:Stated Exam Exam Patient acknowledged, consented, and participated in this virtual visit which was conducted using real time audio/video Vital Signs Date Time Temp Pulse Resp B/P (MAP) Pulse Ox O2 Delivery O2 Flow Rate FiO2 08/03/22 13:00 93 08/03/22 12:30 Room Air 08/03/22 12:15 36.3 93 17 162/103 (122) 92 Room Air 08/03/22 12:00 36.0 08/03/22 10:00 36.9 87 22 149/91 (110) 94 Room Air 08/03/22 09:00 36.9 105 22 148/84 (105) 94 Room Air 08/03/22 08:00 94 Room Air 08/03/22 08:00 105 22 148/84 (105) 94 Nasal Cannula 2.00 08/03/22 07:46 36.9 08/03/22 07:00 98 20 149/85 (106) 94 Nasal Cannula 2.00 08/03/22 07:00 91 08/03/22 06:00 93 18 132/86 (101) 94 Nasal Cannula 2.00 08/03/22 05:00 97 28 95 Nasal Cannula 2.00 08/03/22 04:00 88 15 138/86 (103) 95 Nasal Cannula 2.00 08/03/22 04:00 96 Room Air 08/03/22 03:00 90 15 131/69 (89) 93 Nasal Cannula 2.00 08/03/22 02:00 100 14 144/85 (104) 91 Nasal Cannula 2.00 08/03/22 01:00 109 08/03/22 01:00 92 21 148/89 (108) 97 Nasal Cannula 2.00 08/03/22 00:00 87 17 130/82 (98) 97 Nasal Cannula 2.00 08/02/22 23:59 96 Room Air 08/02/22 23:00 90 30 121/76 (91) 93 Nasal Cannula 2.00 08/02/22 22:00 92 16 131/82 (98) 90 Nasal Cannula 2.00 08/02/22 21:00 101 21 142/86 (104) 92 Nasal Cannula 2.00 08/02/22 20:00 100 28 168/94 (118) Nasal Cannula 2.00 08/02/22 20:00 96 Room Air 08/02/22 19:12 95 Room Air 08/02/22 19:00 99 08/02/22 19:00 88 29 161/87 (111) 92 Nasal Cannula 2.00 08/02/22 18:00 102 44 151/89 (109) 94 Nasal Cannula 2.00 08/02/22 17:00 101 27 150/86 (107) 93 Nasal Cannula 2.00 08/02/22 16:15 96 Room Air 08/02/22 16:00 101 21 149/86 (107) 93 Nasal Cannula 2.00 I & O 08/03/22 07:00 Intake Total 125 ml Output Total 2450 ml Balance -2325 ml Height & Weight Height: '" Weight: lbs. oz. kg; 36.99 BMI Method:Stated General Appearance: No Apparent Distress, WD/WN HEENT: PERRL/EOMI, Normal ENT Inspection Neck: Normal Inspection, Supple Respiratory: Lungs Clear, No Respiratory Distress Cardiovascular: Regular Rate, Rhythm, No Murmur Capillary Refill: Less Than 3 Seconds Gastrointestinal: soft, tenderness (epigastric, improved from yesterday) Extremity: Normal Capillary Refill, Non Tender Neurologic/Psychiatric: Alert, Oriented x3 Skin: Normal Color, Warm/Dry Lymphatic: No Adenopathy Results Lab Laboratory Tests 08/01/22 18:30 08/02/22 04:50 08/02/22 17:59 08/03/22 05:06 Assessment/Plan Assessment/Plan 1 ELIJAH JAMA MD Aug 03, 2022 15:07
[2022-08-03 15:56] VITALS: BP 147/89
[2022-08-03] MEDS: cefTRIAXone 1 GM PRE-MIX 50 ML IV SCH (16:28)
[2022-08-03 18:30] LABS: POTASSIUM 3.6 MMOL/L (3.6-5.0)
[2022-08-03 18:31] LABS: CALCIUM 8.1 MG/DL (8.5-10.1)
[2022-08-03 18:35] LABS: CREATININE SERUM 0.65 MG/DL (0.60-1.30)
[2022-08-03 19:27] VITALS: BP 178/99
[2022-08-04] VITALS (7 sets, daily range): BP systolic 127–178; BP diastolic 80–95
[2022-08-04] MEDS: D5 NS 1000 ML IV SOLUTION 1,000 ML IV SCH ×4 (00:42→21:38)
[2022-08-04] MEDS: HYDROmorphone 2 MG/ML VIAL (DILAUDID) IV PRN ×5 (02:23→23:03)
[2022-08-04] MEDS: PROMETHAZINE INJ 25 MG/ML (PHENERGAN) AMP IVP PRN ×5 (02:23→23:03)
[2022-08-04 06:19] LABS: CALCIUM 8.4 MG/DL (8.5-10.1); CREATININE SERUM 0.66 MG/DL (0.60-1.30); MAGNESIUM 1.9 MG/DL (1.6-2.4); POTASSIUM 3.6 MMOL/L (3.6-5.0)
[2022-08-04] MEDS: POTASSIUM CL 10MEQ/50ML IVPB 50 ML IV SCH (06:19)
[2022-08-04] MEDS: GEMFIBROZIL 600 MG (LOPID) TAB PO SCH ×2 (06:19→16:13)
[2022-08-04] MEDS: KCL 20 MEQ TAB (K-DUR) PO SCH (06:20)
[2022-08-04] MEDS: MAGNESIUM 1 GM/100 ML IVPB 100 ML IV SCH (06:20)
[2022-08-04 06:25] LABS: BASOPHILS # (AUTO) 0.1 10^3/uL (0.0-0.1); BASOPHILS % (AUTO) 0 % (0-10); EOSINOPHILS # (AUTO) 0.3 10^3/uL (0.0-0.3); EOSINOPHILS % (AUTO) 2 % (0-10); HEMATOCRIT 36 % (35-52); HEMOGLOBIN 11.2 g/dL (11.5-16.0); LYMPHOCYTES # (AUTO) 1.8 10^3/uL (1.0-4.0); LYMPHOCYTES % (AUTO) 12 % (12-44); MEAN CORPUSCULAR HEMOGLOBIN 32 pg (25-34); MEAN CORPUSCULAR HGB CONC 31 g/dL (32-36); MEAN CORPUSCULAR VOLUME 104 fL (80-99); MEAN PLATELET VOLUME 10.7 fL (9.0-12.2); MONOCYTES # (AUTO) 1.2 10^3/uL (0.0-1.0); MONOCYTES % (AUTO) 8 % (0-12); NEUTROPHILS # (AUTO) 11.6 10^3/uL (1.8-7.8); NEUTROPHILS % (AUTO) 77 % (42-75); PLATELET COUNT 185 10^3/uL (130-400); WHITE BLOOD COUNT 15.1 10^3/uL (4.3-11.0)
--- NOTE | 2022-08-04 07:14 | Progress Note - Hospitalist ---
Subjective HPI/CC On Admission Date Seen by Provider: Aug 04, 2022 Patient is a 41-year-old female with a past medical history of hypertension who presented to the emergency department at [place] due to abdominal pain. She states it started yesterday and woke her from her sleep. It continued throughout the day and she decided to seek evaluation in the ER last night. She was found to have an elevated lipase and her blood was very lipemic upon lab draw and so triglyceride was checked. Her triglyceride level was found to be 4500. CT of her abdomen confirmed pancreatitis. She was transferred here for further management. She is currently on an insulin drip and reports severe persistent pain. She had had Dilaudid earlier in the day but it had made her sick to her stomach. She denies any history of pancreatitis and reports when her triglycerides were checked in the past they wereon the high end of normal. Subjective/Events-last exam Pt reports doing better today. Pain improving and ate a little bit more last night. No new complaints. Objective Exam Vital Signs Vital Signs Date Time Temp Pulse Resp B/P (MAP) Pulse Ox O2 Delivery O2 Flow Rate FiO2 08/04/22 04:18 36.2 92 20 147/81 (103) 98 Room Air 08/03/22 19:33 2.00 Capillary Refill : Less Than 3 Seconds General Appearance: No Apparent Distress, WD/WN Respiratory: Lungs Clear, No Respiratory Distress Cardiovascular: Regular Rate, Rhythm, No Murmur Gastrointestinal: Normal Bowel Sounds, Soft Neurologic/Psychiatric: Alert, Oriented x3 Results/Procedures Lab Laboratory Tests 08/03/22 18:03 08/04/22 05:42 Patient resulted labs reviewed. Imaging: Reviewed Imaging Report (from [place]) Assessment/Plan Assessment and Plan Assess & Plan/Chief Complaint Hypertriglyceridemia induced pancreatitis Trig 4500 at outside facility, down further to 295 CLD- advance at lunch Pain regimen- adding oral agents as well IVF Surgery consulted, appreciate recs Will refer to [facility] HTN BP well controlled, trend DVT ppx: Lovenox Critical Care Critically Ill Patient Diagnosis/Problems Diagnosis/Problems (1) Hypertension (2) Hypertriglyceridemia (3) Pancreatitis Qualifiers: Chronicity: acute Pancreatitis type: other Acute pancreatitis complication: no infection or necrosis Qualified Codes: K85.80 - Other acute pancreatitis without necrosis or infection NESHA COLORADO MD Aug 04, 2022 07:14
[2022-08-04] MEDS ORDERED: KCL 20 MEQ TAB (K-DUR) PO ONE (08:00)
[2022-08-04] MEDS: PANTOPRAZOLE 40 MG (PROTONIX) TAB PO SCH (08:16)
[2022-08-04] MEDS: meTOproloL SUCCINATE 50 MG (TOPROL XL) TAB PO SCH (08:17)
[2022-08-04] MEDS: ENOXAPARIN 40 MG/0.4 ML (LOVENOX) SYR SC SCH (08:17)
--- NOTE | 2022-08-04 11:01 | Progress Note - Surgery ---
[facility] 08/04/22 1101: Subjective Date Seen by a Provider: Aug 04, 2022 Time Seen by a Provider: 10:56 Subjective/Events-last exam She is still having pain at a 4/10 in severity in the epigastrium and radiating to her back, 7/10 worst. Endorses gas, no BM. Still having nausea and taking q4h zofran and phenergan 15 minutes before pain meds to mitigate side effects. She is able to get up and use the bathroom. Doing well on clear diet. Her TG improved to 295, were 4500 at outside facility before stay Review of Systems General: No Chills, No Night Sweats HEENT: No Visual Changes, No Dysphasia Pulmonary: No Dyspnea, No Cough Cardiovascular: No: Chest Pain, Palpitations Gastrointestinal: Nausea, Abdominal Pain Genitourinary: No Dysuria, No Frequency Musculoskeletal: back pain; No: neck pain, shoulder pain Neurological: No: Weakness, Numbness Objective Exam Vital Signs Date Time Temp Pulse Resp B/P (MAP) Pulse Ox O2 Delivery O2 Flow Rate FiO2 08/04/22 08:30 Room Air 08/04/22 07:47 36.7 107 18 163/85 (111) 98 Nasal Cannula 2.00 08/04/22 07:00 92 08/04/22 04:18 36.2 92 20 147/81 (103) 98 Room Air 08/04/22 01:00 106 08/04/22 00:39 35.9 96 20 127/86 (100) 97 Room Air 08/03/22 19:33 Nasal Cannula 2.00 08/03/22 19:27 36.2 94 17 178/99 (125) 98 Nasal Cannula 2.00 08/03/22 19:00 90 08/03/22 17:58 Nasal Cannula 2.00 08/03/22 15:56 36.1 98 19 147/89 (108) 94 Room Air 08/03/22 13:00 93 08/03/22 12:30 Room Air 08/03/22 12:15 36.3 93 17 162/103 (122) 92 Room Air 08/03/22 12:00 36.0 I & O 08/04/22 07:00 Intake Total 2250 ml Output Total 600 ml Balance 1650 ml Capillary Refill : Less Than 3 Seconds General Appearance: No Apparent Distress, WD/WN HEENT: PERRL/EOMI, Normal ENT Inspection Neck: Normal Inspection, Supple Respiratory: Lungs Clear, No Respiratory Distress Cardiovascular: Regular Rate, Rhythm, No Murmur Gastrointestinal: soft, tenderness (epigastric, improved from yesterday) Extremity: Normal Capillary Refill, Non Tender Neurologic/Psychiatric: Alert, Oriented x3 Skin: Normal Color, Warm/Dry Lymphatic: No Adenopathy Results Lab Laboratory Tests 08/03/22 12:49: Glucometer 71 08/03/22 13:21: Glucometer 67L 08/03/22 15:22: Glucometer 92 08/03/22 17:25: Glucometer 94 08/03/22 18:03: Sodium Level 137, Potassium Level 3.6, Chloride Level 108H, Carbon Dioxide Level 23, Anion Gap 6, Blood Urea Nitrogen 8, Creatinine 0.65, Estimat Glomerular Filtration Rate 114, BUN/Creatinine Ratio 12, Glucose Level 110H, Calcium Level 8.1L 08/04/22 00:13: Glucometer 107 08/04/22 05:25: Glucometer 123H 08/04/22 05:42: Sodium Level 135, Potassium Level 3.6, Chloride Level 109H, Carbon Dioxide Level 15L, Anion Gap 11, Blood Urea Nitrogen 9, Creatinine 0.66, Estimat Glomerular Filtration Rate 114, BUN/Creatinine Ratio 14, Glucose Level 110H, Calcium Level 8.4L, White Blood Count 15.1H, Red Blood Count 3.48L, Hemoglobin 11.2L, Hematocrit 36, Mean Corpuscular Volume 104H, Mean Corpuscular Hemoglobin 32, Mean Corpuscular Hemoglobin Concent 31L, Red Cell Distribution Width 14.0, Platelet Count 185, Mean Platelet Volume 10.7, Immature Granulocyte % (Auto) 1, Neutrophils (%) (Auto) 77H, Lymphocytes (%) (Auto) 12, Monocytes (%) (Auto) 8, Eosinophils (%) (Auto) 2, Basophils (%) (Auto) 0, Neutrophils # (Auto) 11.6H, Lymphocytes # (Auto) 1.8, Monocytes # (Auto) 1.2H, Eosinophils # (Auto) 0.3, Basophils # (Auto) 0.1, Immature Granulocyte # (Auto) 0.1, Magnesium Level 1.9, Triglycerides Level 295H Microbiology 08/02/22 MRSA Screen - Final, Complete MRSA not isolated Assessment/Plan Assessment/Plan Assessment/Plan epigastric abdominal pain secondary to pancreatitis- improved nausea/vomiting elevated triglycerides- improved IV fluids pain control zofran q4h and phenergan clear liquid diet without issue, still with nausea and some pain, would not advance diet until further improved Do not need GB u/s already removed PATO LIVINGSTON DO 08/04/22 1132: Subjective Subjective/Events-last exam Still with epigastric pain, states better though. Having bowel function. Still some nausea. Starting to get more appetite. Denies fever sweats chills shortness of breath or chest pain. Objective Exam General Appearance: No Apparent Distress, WD/WN HEENT: PERRL/EOMI, Normal ENT Inspection Neck: Normal Inspection, Supple Respiratory: Chest Non Tender, No Accessory Muscle Use, No Respiratory Distress Cardiovascular: Regular Rate, Rhythm, No JVD Gastrointestinal: soft, tenderness (epigastric) Extremity: Normal Capillary Refill, Non Tender Neurologic/Psychiatric: Alert, Oriented x3 Skin: Normal Color, Warm/Dry Lymphatic: No Adenopathy Assessment/Plan Assessment/Plan Assessment/Plan epigastric abdominal pain secondary to pancreatitis- improved nausea/vomiting elevated triglycerides- improved IV fluids pain control zofran q4h and phenergan diet as tolerates as long as not having significant pain. Do not need GB u/s already removed Supervisory-Addendum Brief Verification & Attestation Participated in pt care: history, MDM, physical Personally performed: exam, history, MDM, supervision of care Care discussed with: Medical Student Procedures: n/a Results interpretation: Verified all documentation Verification and Attestation of Medical Student E/M Service A medical student performed and documented this service in my presence. I reviewed and verified all information documented by the medical student and made modifications to such information, when appropriate. I personally performed the physical exam and medical decision making. Pato Livingston, Aug 04, 2022,11:33 ROSITA BOUDREAUX Aug 04, 2022 11:01 PATO LIVINGSTON DO Aug 04, 2022 11:32
[2022-08-04] MEDS: ACETAMINOPHEN 500 MG TAB (TYLENOL) PO PRN (16:13)
[2022-08-04] MEDS ORDERED: hydrALAZINE (APESOLINE) 20 MG/ML VIAL IV PRN (21:30)
[2022-08-05] VITALS (7 sets, daily range): BP systolic 141–171; BP diastolic 75–89
[2022-08-05] MEDS: ACETAMINOPHEN 500 MG TAB (TYLENOL) PO PRN ×3 (02:51→20:42)
[2022-08-05] MEDS: POTASSIUM CL 10MEQ/50ML IVPB 50 ML IV SCH (06:00)
[2022-08-05] MEDS: KCL 20 MEQ TAB (K-DUR) PO SCH (06:00)
[2022-08-05] MEDS: MAGNESIUM 1 GM/100 ML IVPB 100 ML IV SCH ×3 (06:00→08:14)
[2022-08-05] MEDS: GEMFIBROZIL 600 MG (LOPID) TAB PO SCH ×2 (06:07→16:15)
[2022-08-05] MEDS: D5 NS 1000 ML IV SOLUTION 1,000 ML IV SCH (06:13)
[2022-08-05] MEDS: morphine INJ 4 MG/ML 1 ML (VIAL/SYRINGE) IVP PRN ×2 (06:13→10:31)
[2022-08-05] MEDS: ONDANSETRON 4 MG/2 ML (SDV) Z0FRAN IVP PRN ×2 (06:13→10:31)
[2022-08-05 06:15] LABS: CALCIUM 8.4 MG/DL (8.5-10.1); CREATININE SERUM 0.58 MG/DL (0.60-1.30); MAGNESIUM 1.7 MG/DL (1.6-2.4); POTASSIUM 3.5 MMOL/L (3.6-5.0)
--- NOTE | 2022-08-05 06:19 | Progress Note - Surgery ---
[facility] 08/05/22 0619: Subjective Date Seen by a Provider: Aug 05, 2022 Time Seen by a Provider: 06:14 Subjective/Events-last exam Pt reports no improvement or worsening. Pain 5/10 in epigastrium radiating to back, up to 7-8/10. She reports nausea and pain yesterday and attributes to "o verdoing it" taking a shower yesterday. She tried bites of mashed potatoes and noodle soup but otherwise on liquids. Denies BM but is passing gas and urinating without issue. She denies STEVENS at this time Review of Systems General: No Chills, No Night Sweats HEENT: No Head Aches, No Visual Changes Pulmonary: No Dyspnea, No Cough Cardiovascular: No: Chest Pain, Palpitations Gastrointestinal: Nausea, Abdominal Pain Genitourinary: No Dysuria, No Frequency Musculoskeletal: back pain; No: neck pain Neurological: No: Weakness, Numbness Objective Exam Vital Signs Date Time Temp Pulse Resp B/P (MAP) Pulse Ox O2 Delivery O2 Flow Rate FiO2 08/05/22 04:18 36.3 84 16 141/75 (97) 97 Room Air 08/05/22 01:00 82 08/04/22 23:09 36.2 101 18 143/80 (101) 98 Nasal Cannula 2.00 08/04/22 19:50 Room Air 08/04/22 19:10 37.0 100 19 178/95 (122) 95 Room Air 08/04/22 19:00 107 08/04/22 15:38 36.5 96 18 178/84 (115) 95 Room Air 08/04/22 13:00 105 08/04/22 12:14 37.3 102 18 158/88 (111) 99 Room Air 08/04/22 08:30 Room Air 08/04/22 07:47 36.7 107 18 163/85 (111) 98 Nasal Cannula 2.00 08/04/22 07:00 92 I & O 08/05/22 07:00 Intake Total 2770 ml Output Total 600 ml Balance 2170 ml Capillary Refill : Less Than 3 Seconds General Appearance: No Apparent Distress, WD/WN HEENT: PERRL/EOMI, Normal ENT Inspection Neck: Normal Inspection, Supple Respiratory: Chest Non Tender, No Accessory Muscle Use, No Respiratory Distress Cardiovascular: Regular Rate, Rhythm, No JVD Gastrointestinal: soft, tenderness (epigastric) Extremity: Normal Capillary Refill, Non Tender Neurologic/Psychiatric: Alert, Oriented x3 Skin: Normal Color, Warm/Dry Lymphatic: No Adenopathy Results Lab Laboratory Tests 08/04/22 12:09: Glucometer 77 08/04/22 18:13: Glucometer 89 08/04/22 23:08: Glucometer 87 08/05/22 05:06: 08/05/22 05:54: Glucometer 113H Microbiology 08/02/22 MRSA Screen - Final, Complete MRSA not isolated Assessment/Plan Assessment/Plan Assessment/Plan epigastric abdominal pain secondary to pancreatitis- same as yesterday nausea/vomiting elevated triglycerides- improved IV fluids pain control zofran q4h and phenergan diet as tolerates as long as not having significant pain Do not need GB u/s already removed PATO LIVINGSTON DO 08/05/22 1641: Subjective Subjective/Events-last exam Patient about the same as yesterday, slowly improving she thinks overall. Occasional nausea. Epigastric pain. Tolerating diet better. Denies fever sweats chills shortness of breath or chest pain. Objective Exam General Appearance: No Apparent Distress, WD/WN HEENT: PERRL/EOMI, Normal ENT Inspection Neck: Normal Inspection, Supple Respiratory: Chest Non Tender, No Accessory Muscle Use, No Respiratory Distress Cardiovascular: Regular Rate, Rhythm, No JVD Gastrointestinal: soft, tenderness (epigastric) Extremity: Normal Capillary Refill, Non Tender Neurologic/Psychiatric: Alert, Oriented x3 Skin: Normal Color, Warm/Dry Lymphatic: No Adenopathy Assessment/Plan Assessment/Plan Assessment/Plan epigastric abdominal pain secondary to pancreatitis- same as yesterday to slightly better nausea/vomiting elevated triglycerides- improved IV fluids pain control zofran q4h and phenergan diet as tolerates as long as not having significant pain Do not need GB u/s already removed slowly improving Supervisory-Addendum Brief Verification & Attestation Participated in pt care: history, MDM, physical Personally performed: exam, history, MDM, supervision of care Care discussed with: Medical Student Procedures: n/a Results interpretation: Verified all documentation Verification and Attestation of Medical Student E/M Service A medical student performed and documented this service in my presence. I reviewed and verified all information documented by the medical student and made modifications to such information, when appropriate. I personally performed the physical exam and medical decision making. Pato Livingston, Aug 05, 2022,16:41 ROSITA BOUDREAUX Aug 05, 2022 06:19 PATO LIVINGSTON DO Aug 05, 2022 16:41
[2022-08-05] MEDS: meTOproloL SUCCINATE 50 MG (TOPROL XL) TAB PO SCH (08:13)
[2022-08-05] MEDS: PROMETHAZINE INJ 25 MG/ML (PHENERGAN) AMP IVP PRN ×3 (08:13→20:42)
[2022-08-05] MEDS: PANTOPRAZOLE 40 MG (PROTONIX) TAB PO SCH (08:14)
[2022-08-05] MEDS: ENOXAPARIN 40 MG/0.4 ML (LOVENOX) SYR SC SCH (08:14)
[2022-08-05] MEDS ORDERED: KCL 20 MEQ TAB (K-DUR) PO ONE (09:00)
--- NOTE | 2022-08-05 12:56 | Progress Note - Hospitalist ---
Subjective HPI/CC On Admission Date Seen by Provider: Aug 05, 2022 Patient is a 41-year-old female with a past medical history of hypertension who presented to the emergency department at [place] due to abdominal pain. She states it started yesterday and woke her from her sleep. It continued throughout the day and she decided to seek evaluation in the ER last night. She was found to have an elevated lipase and her blood was very lipemic upon lab draw and so triglyceride was checked. Her triglyceride level was found to be 4500. CT of her abdomen confirmed pancreatitis. She was transferred here for further management. She is currently on an insulin drip and reports severe persistent pain. She had had Dilaudid earlier in the day but it had made her sick to her stomach. She denies any history of pancreatitis and reports when her triglycerides were checked in the past they wereon the high end of normal. Subjective/Events-last exam Pt reports feeling somewhat better but still having persistent pain. Dilaudid helps with the abd pain but gives her a headache. She is trying morphine now. Still no BM but does not want laxative yet. Ate a little better this morning. Objective Exam Vital Signs Vital Signs Date Time Temp Pulse Resp B/P (MAP) Pulse Ox O2 Delivery O2 Flow Rate FiO2 08/05/22 12:44 105 08/05/22 11:54 37.2 18 171/87 (115) Room Air 08/05/22 07:33 97 08/04/22 23:09 2.00 Capillary Refill : Less Than 3 Seconds General Appearance: No Apparent Distress, WD/WN Respiratory: Lungs Clear, No Respiratory Distress Cardiovascular: Regular Rate, Rhythm, No Murmur Gastrointestinal: Normal Bowel Sounds, Non Tender, Soft Neurologic/Psychiatric: Alert, Oriented x3 Results/Procedures Lab Laboratory Tests 08/05/22 05:06 Patient resulted labs reviewed. Imaging: Reviewed Imaging Report (from [place]) Assessment/Plan Assessment and Plan Assess & Plan/Chief Complaint Hypertriglyceridemia induced pancreatitis Trig 4500 at outside facility, trended down Tolerating current diet but minimally Pain regimen- relatively well controlled but still dependent on IV meds IVF Surgery consulted, appreciate recs Offered referral to [facility]id Clinic- would prefer to see Dr Arevalo locally HTN BP well controlled, trend DVT ppx: Lovenox Critical Care Critically Ill Patient Diagnosis/Problems Diagnosis/Problems (1) Hypertension (2) Hypertriglyceridemia (3) Pancreatitis Qualifiers: Chronicity: acute Pancreatitis type: other Acute pancreatitis complication: no infection or necrosis Qualified Codes: K85.80 - Other acute pancreatitis without necrosis or infection NESHA COLORADO MD Aug 05, 2022 12:56
[2022-08-05] MEDS ORDERED: SENNA W/DOCUSATE (SENOKOT S) TABLET PO PRN (13:00)
[2022-08-05] MEDS: HYDROmorphone 2 MG/ML VIAL (DILAUDID) IV PRN ×2 (13:02→20:42)
[2022-08-06] MEDS: D5 NS 1000 ML IV SOLUTION 1,000 ML IV SCH ×3 (01:23→15:37)
[2022-08-06] MEDS: PROMETHAZINE INJ 25 MG/ML (PHENERGAN) AMP IVP PRN ×3 (03:18→20:24)
[2022-08-06] MEDS: HYDROmorphone 2 MG/ML VIAL (DILAUDID) IV PRN ×3 (03:18→20:24)
[2022-08-06] MEDS: ACETAMINOPHEN 500 MG TAB (TYLENOL) PO PRN ×3 (03:18→20:24)
[2022-08-06 03:20] VITALS: BP 155/74
[2022-08-06 06:37] LABS: HEMATOCRIT 32 % (35-52); HEMOGLOBIN 10.2 g/dL (11.5-16.0); MEAN CORPUSCULAR HEMOGLOBIN 31 pg (25-34); MEAN CORPUSCULAR HGB CONC 32 g/dL (32-36); MEAN CORPUSCULAR VOLUME 98 fL (80-99); MEAN PLATELET VOLUME 9.9 fL (9.0-12.2); PLATELET COUNT 198 10^3/uL (130-400); WHITE BLOOD COUNT 12.8 10^3/uL (4.3-11.0)
--- NOTE | 2022-08-06 06:51 | Progress Note - Surgery ---
[facility] 08/06/22 0651: Subjective Date Seen by a Provider: Aug 06, 2022 Time Seen by a Provider: 06:47 Subjective/Events-last exam Pt reports pain is better today at a constant 2-3/10 in severity localized to epigastrium that gets up to a 7/10 and radiates to her back when she is due for pain meds. She had 2 loose BM without pain or blood yesterday, is still passing gas and urinating without issue. She had a baked potato for dinner last night without increased pain. Reports a STEVENS this morning that she attributes to taking pain medication. Review of Systems General: No Chills, No Night Sweats HEENT: Head Aches; No Visual Changes Pulmonary: No Dyspnea, No Cough Cardiovascular: No: Chest Pain, Palpitations Gastrointestinal: Abdominal Pain (epigastric); No: Constipation Genitourinary: No Dysuria, No Frequency Musculoskeletal: No: neck pain, shoulder pain Neurological: No: Weakness, Numbness Objective Exam Vital Signs Date Time Temp Pulse Resp B/P (MAP) Pulse Ox O2 Delivery O2 Flow Rate FiO2 08/06/22 03:20 36.6 91 18 155/74 (101) 98 Room Air 08/06/22 01:00 89 08/05/22 23:34 36.0 91 18 166/80 (108) 99 Nasal Cannula 2.00 08/05/22 21:35 36.1 97 16 143/81 (101) 98 Nasal Cannula 2.00 08/05/22 20:40 Room Air 08/05/22 20:26 36.9 111 18 152/89 (110) 98 Room Air 08/05/22 19:32 114 08/05/22 16:06 36.6 96 16 145/81 (102) 99 Room Air 08/05/22 12:44 105 08/05/22 11:54 37.2 100 18 171/87 (115) Room Air 08/05/22 08:22 Room Air 08/05/22 07:33 36.2 97 18 170/86 (114) 97 Room Air 08/05/22 07:00 97 I & O 08/06/22 07:00 Intake Total 2250 ml Output Total 1650 ml Balance 600 ml Capillary Refill : Less Than 3 Seconds General Appearance: WD/WN, Mild Distress HEENT: PERRL/EOMI, Normal ENT Inspection Neck: Normal Inspection, Supple Respiratory: Chest Non Tender, No Accessory Muscle Use, No Respiratory Distress Cardiovascular: Regular Rate, Rhythm, No JVD Peripheral Pulses: 2+ Radial Pulses (R), 2+ Radial Pulses (L) Gastrointestinal: soft, tenderness (epigastric- less) Extremity: Normal Capillary Refill, Non Tender Neurologic/Psychiatric: Alert, Oriented x3 Skin: Normal Color, Warm/Dry Lymphatic: No Adenopathy Results Lab Laboratory Tests 08/05/22 11:49: Glucometer 92 08/05/22 17:51: Glucometer 81 08/05/22 23:37: Glucometer 117H 08/06/22 06:25: White Blood Count 12.8H, Red Blood Count 3.25L, Hemoglobin 10.2L, Hematocrit 32L , Mean Corpuscular Volume 98, Mean Corpuscular Hemoglobin 31, Mean Corpuscular Hemoglobin Concent 32, Red Cell Distribution Width 13.3, Platelet Count 198, Mean Platelet Volume 9.9 Microbiology 08/02/22 MRSA Screen - Final, Complete MRSA not isolated Assessment/Plan Assessment/Plan Assessment/Plan epigastric abdominal pain secondary to pancreatitis- improved from yesterday nausea/vomiting elevated triglycerides- improved IV fluids pain control zofran q4h and phenergan diet as tolerates as long as not having significant pain Do not need GB u/s already removed slowly improving PATO LIVINGSTON DO 08/06/22 1416: Subjective Subjective/Events-last exam Patient pain continues to improve. Feeling better and hoping to go home tomorrow. Tolerating diet. No new complaints. Denies any nausea vomiting fever sweats chills shortness of breath or chest pain at this time. Objective Exam General Appearance: No Apparent Distress, WD/WN; No Mild Distress HEENT: PERRL/EOMI, Normal ENT Inspection Neck: Normal Inspection, Supple Respiratory: Chest Non Tender, No Accessory Muscle Use, No Respiratory Distress Cardiovascular: Regular Rate, Rhythm, No JVD Gastrointestinal: soft, tenderness (epigastric-minimal) Extremity: Normal Capillary Refill, Non Tender Neurologic/Psychiatric: Alert, Oriented x3, Normal Mood/Affect Skin: Normal Color, Warm/Dry Lymphatic: No Adenopathy Assessment/Plan Assessment/Plan Assessment/Plan epigastric abdominal pain secondary to pancreatitis- improved from yesterday nausea/vomiting elevated triglycerides- improved IV fluids pain control zofran q4h and phenergan diet as tolerates as long as not having significant pain Do not need GB u/s already removed slowly improving Possibly home tomorrow. Supervisory-Addendum Brief Verification & Attestation Participated in pt care: history, MDM, physical Personally performed: exam, history, MDM, supervision of care Care discussed with: Medical Student Procedures: n/a Results interpretation: Verified all documentation Verification and Attestation of Medical Student E/M Service A medical student performed and documented this service in my presence. I reviewed and verified all information documented by the medical student and made modifications to such information, when appropriate. I personally performed the physical exam and medical decision making. Pato Livingston, Aug 06, 2022,14:15 ROSITA BOUDREAUX Aug 06, 2022 06:51 PATO LIVINGSTON DO Aug 06, 2022 14:16
[2022-08-06 06:58] LABS: CALCIUM 8.4 MG/DL (8.5-10.1); CREATININE SERUM 0.59 MG/DL (0.60-1.30); MAGNESIUM 1.7 MG/DL (1.6-2.4); POTASSIUM 3.5 MMOL/L (3.6-5.0)
[2022-08-06] MEDS: POTASSIUM CL 10MEQ/50ML IVPB 50 ML IV SCH (07:05)
[2022-08-06] MEDS: MAGNESIUM 1 GM/100 ML IVPB 100 ML IV SCH ×3 (07:05→09:30)
[2022-08-06] MEDS: KCL 20 MEQ TAB (K-DUR) PO SCH (07:05)
[2022-08-06] MEDS: ONDANSETRON 4 MG/2 ML (SDV) Z0FRAN IVP PRN (07:30)
[2022-08-06] MEDS: ENOXAPARIN 40 MG/0.4 ML (LOVENOX) SYR SC SCH (07:31)
[2022-08-06] MEDS: GEMFIBROZIL 600 MG (LOPID) TAB PO SCH ×2 (07:33→14:22)
[2022-08-06 07:38] VITALS: BP 154/76
[2022-08-06] MEDS: meTOproloL SUCCINATE 50 MG (TOPROL XL) TAB PO SCH (08:13)
[2022-08-06] MEDS: PANTOPRAZOLE 40 MG (PROTONIX) TAB PO SCH (08:13)
[2022-08-06] MEDS ORDERED: KCL 20 MEQ TAB (K-DUR) PO ONE (09:00)
--- NOTE | 2022-08-06 12:10 | Progress Note - Hospitalist ---
Subjective HPI/CC On Admission Date Seen by Provider: Aug 06, 2022 Patient is a 41-year-old female with a past medical history of hypertension who presented to the emergency department at [facility] due to abdominal pain. She states it started yesterday and woke her from her sleep. It continued throughout the day and she decided to seek evaluation in the ER last night. She was found to have an elevated lipase and her blood was very lipemic upon lab draw and so triglyceride was checked. Her triglyceride level was found to be 4500. CT of her abdomen confirmed pancreatitis. She was transferred here for further management. She is currently on an insulin drip and reports severe persistent pain. She had had Dilaudid earlier in the day but it had made her sick to her stomach. She denies any history of pancreatitis and reports when her triglycerides were checked in the past they wereon the high end of normal. Subjective/Events-last exam Pt reports doing better today. Went ~6 hours without pain medication last night. Ate more of breakfast. Had a BM. Hopeful to try oral pain medications today if continues to improve. Objective Exam Vital Signs Vital Signs Date Time Temp Pulse Resp B/P (MAP) Pulse Ox O2 Delivery O2 Flow Rate FiO2 08/06/22 08:00 Room Air 08/06/22 07:38 35.9 98 18 154/76 (102) 97 08/05/22 23:34 2.00 Capillary Refill : Less Than 3 Seconds General Appearance: No Apparent Distress, WD/WN Respiratory: Lungs Clear, No Respiratory Distress Cardiovascular: Regular Rate, Rhythm, No Murmur Gastrointestinal: Normal Bowel Sounds Neurologic/Psychiatric: Alert, Oriented x3 Results/Procedures Lab Laboratory Tests 08/06/22 06:25 Patient resulted labs reviewed. Imaging: Reviewed Imaging Report (from [facility]) Assessment/Plan Assessment and Plan Assess & Plan/Chief Complaint Hypertriglyceridemia induced pancreatitis Trig 4500 at outside facility, trended down to 230 today Tolerating current diet, slowly improving Pain regimen- relatively well controlled but still dependent on IV meds- try to switch to orals today IVF Surgery consulted, appreciate recs Offered referral to [facility]- would prefer to see Dr Arevalo locally HTN BP well controlled, trend DVT ppx: Lovenox Critical Care Critically Ill Patient Diagnosis/Problems Diagnosis/Problems (1) Hypertension (2) Hypertriglyceridemia (3) Pancreatitis Qualifiers: Chronicity: acute Pancreatitis type: other Acute pancreatitis complication: no infection or necrosis Qualified Codes: K85.80 - Other acute pancreatitis without necrosis or infection NESHA COLORADO MD Aug 06, 2022 12:10
[2022-08-06 12:11] VITALS: BP 160/86
[2022-08-06] MEDS: HYDROcodone/APAP 5 MG/325 MG (LORTAB) TAB PO PRN (14:22)
[2022-08-06 16:10] VITALS: BP 162/74
[2022-08-06 20:00] VITALS: BP 142/79
[2022-08-06 23:08] VITALS: BP 138/78
[2022-08-07] MEDS: HYDROcodone/APAP 5 MG/325 MG (LORTAB) TAB PO PRN ×2 (00:20→09:10)
[2022-08-07] MEDS: D5 NS 1000 ML IV SOLUTION 1,000 ML IV SCH (00:20)
[2022-08-07] MEDS: ONDANSETRON 4 MG (ZOFRAN) ORAL DISSOLVE TAB PO PRN ×2 (00:20→09:10)
[2022-08-07] MEDS: ACETAMINOPHEN 500 MG TAB (TYLENOL) PO PRN (02:59)
[2022-08-07 05:55] LABS: CALCIUM 8.5 MG/DL (8.5-10.1); CREATININE SERUM 0.61 MG/DL (0.60-1.30); MAGNESIUM 1.7 MG/DL (1.6-2.4); POTASSIUM 3.8 MMOL/L (3.6-5.0)
[2022-08-07] MEDS: POTASSIUM CL 10MEQ/50ML IVPB 50 ML IV SCH (05:56)
[2022-08-07] MEDS: KCL 20 MEQ TAB (K-DUR) PO SCH (05:56)
[2022-08-07] MEDS: MAGNESIUM 1 GM/100 ML IVPB 100 ML IV SCH ×3 (05:57→08:21)
[2022-08-07] MEDS: GEMFIBROZIL 600 MG (LOPID) TAB PO SCH (06:18)
[2022-08-07] MEDS: ONDANSETRON 4 MG/2 ML (SDV) Z0FRAN IVP PRN (06:23)
[2022-08-07 07:15] VITALS: BP 119/77
[2022-08-07] MEDS: meTOproloL SUCCINATE 50 MG (TOPROL XL) TAB PO SCH (08:20)
[2022-08-07] MEDS: PANTOPRAZOLE 40 MG (PROTONIX) TAB PO SCH (08:20)
[2022-08-07] MEDS: ENOXAPARIN 40 MG/0.4 ML (LOVENOX) SYR SC SCH (08:20)
[2022-08-07 08:43] LABS: CHOLESTEROL 170 MG/DL (< 200); HDL CHOLESTEROL 33 MG/DL (40-60); TRIGLYCERIDES 206 MG/DL (<150); VLDL CHOLESTEROL 41 MG/DL (5-40)
[2022-08-07] MEDS ORDERED: ACHD5005 PO (11:47)
[2022-08-07] MEDS ORDERED: ONDA4TAB11 PO (11:47)
[2022-08-07] MEDS ORDERED: GEMF600T88 PO (11:47)
[2022-08-07 13:00] VITALS: BP 119/77
== END 2022-08-07 13:00 | disposition home or self-care (01) | DRG 642 ==
LOC: ICU 00:52 → 4TH 08-03 12:15
PROVIDERS: ADMIT Internal Medicine; ATTEND Family Medicine
DX: E78.1 Pure hyperglyceridemia (principal); K85.80 Other acute pancreatitis without necrosis or infection; I10 Essential (primary) hypertension; E16.2 Hypoglycemia, unspecified; R09.02 Hypoxemia
CPT/HCPCS: 36415; 80048; 80061; 82947; 83735; 84100; 84478; 85007; 85025; 85027; 87081; 94664